=== PATIENT | male | born 1945 | race Caucasian/White ===

== ENCOUNTER 2019-01-24 11:06 | Emergency (ER) | payer OTHER ==
[2019-01-24 12:11] VITALS: BP 110/59
--- NOTE | 2019-01-24 12:13 | EDM.PDOC ---
ED HPI GENERAL MEDICAL PROBLEM - General Chief Complaint: Upper Extremity Injury/Pain Stated Complaint: RT SHOULDER PAIN Time Seen by Provider: 01/24/19 11:13 Source of Information: Reports: Patient History Limitations: Reports: No Limitations - History of Present Illness INITIAL COMMENTS - FREE TEXT/NARRATIVE: History of present illness: []Patient has had a shoulder replacement of the right shoulder on December 13. His shoulder was found to be dislocated on January 17 on a follow-up appointment patient was unaware of this. He went to the [facility] today for another follow-up appointment x -rays were repeated and the shoulder is once again dislocated. He does not complain of any pain, numbness or tingling in the extremity Review of systems: As per history of present illness and below otherwise all systems reviewed and negative. Past medical history: As per history of present illness and as reviewed below otherwise noncontributory. Surgical history: As per history of present illness and as reviewed below otherwise noncontributory. Social history: No reported history of drug or alcohol abuse. Family history: As per history of present illness and as reviewed below otherwise noncontributory. Physical exam: General: Well developed, well nourished in NAD HEENT: Atraumatic, normocephalic, pupils reactive, negative for conjunctival pallor or scleral icterus, mucous membranes moist, throat clear, neck supple, nontender, trachea midline. Lungs: Clear to auscultation, breath sounds equal bilaterally, chest nontender. Heart: S1S2, regular, negative for clicks, rubs, or JVD. Abdomen: NABS, Soft, nondistended, nontender. Negative for masses or hepatosplenomegaly. Negative for costovertebral tenderness. Pelvis: Stable nontender. Genitourinary: Deferred. Rectal: Deferred. Extremities: Right shoulder deformity, nontender, distal extremity shows no deficits pulses are palpable sensations intact negative for cords or calf pain. Neurovascular unremarkable. Neuro: Awake, alert, oriented. Cranial nerves II through XII unremarkable. Cerebellum unremarkable. Motor and sensory unremarkable throughout. Exam nonfocal. Skin:warm and dry Diagnostics: X-ray shows right shoulder prosthetic with dislocation Therapeutics: none ED Course: Dr. Koo was called however he is out for 2 weeks I spoke with Dr. Joshua Braun he recommended patient putting in an arm sling and having him call the clinic for follow-up appointment for revision right either Dr. Hutchison or Dr. Bolaños Impression: recurrent right shoulder dislocation Prescriptions: none Plan: Follow-up with [facility]. Definitive disposition and diagnosis as appropriate pending reevaluation and review of above. - Related Data Allergies Allergy/AdvReac Type Severity Reaction Status Date / Time No Known Allergies Allergy Verified 09/20/14 16:28 Home Meds: Home Meds Ascorbic Acid [C-1000] 1 tab PO DAILY 09/20/14 [History] Aspirin 1 tab PO DAILY 09/20/14 [History] Cholecalciferol (Vitamin D3) [Vitamin D3] 1 tab PO DAILY 09/20/14 [History] Folic Acid 1 tab PO DAILY 09/20/14 [History] Lisinopril 0.5 tab PO BRK 09/20/14 [History] Lovastatin 40 mg PO BEDTIME 09/20/14 [History] Metoprolol Succinate 200 mg PO BRK 09/20/14 [History] Multivitamin [Multi-Vitamin Daily] 1 tab PO DAILY 09/20/14 [History] [place]-3 Fatty Acids [[place]-3] 1 tab PO DAILY 09/20/14 [History] Potassium 1 tab PO DAILY 09/20/14 [History] Psyllium Husk [Metamucil] 1 tab PO ASDIRECTED PRN 09/20/14 [History] Ubidecarenone [Co Q-10] 1 tab PO DAILY 09/20/14 [History] metFORMIN HCl [Metformin HCl] 1,000 mg PO BIDM 09/20/14 [History] Review of Systems - Review of Systems Review Of Systems: ROS reveals no pertinent complaints other than HPI. ED EXAM, GENERAL - Physical Exam Exam: See Below Departure - Departure Time of Disposition: 12:11 Disposition: Home, Self-Care 01 Condition: Good Clinical Impression: Recurrent dislocation, right shoulder - Discharge Information *PRESCRIPTION DRUG MONITORING PROGRAM REVIEWED*: No *COPY OF PRESCRIPTION DRUG MONITORING REPORT IN PATIENT FORTUNATO: No Referrals: PCP,None [Primary Care Provider] - Additional Instructions: The following information is given to patients seen in the emergency department who are being discharged to home. This information is to outline your options for follow-up care. We provide all patients seen in our emergency department with a follow-up referral. The need for follow-up, as well as the timing and circumstances, are variable depending upon the specifics of your emergency department visit. If you don't have a primary care physician on staff, we will provide you with a referral. We always advise you to contact your personal physician following an emergency department visit to inform them of the circumstance of the visit and for follow-up with them and/or the need for any referrals to a consulting specialist. The emergency department will also refer you to a specialist when appropriate. This referral assures that you have the opportunity for follow-up care with a specialist. All of these measure are taken in an effort to provide you with optimal care, which includes your follow-up. Under all circumstances we always encourage you to contact your private physician who remains a resource for coordinating your care. When calling for follow-up care, please make the office aware that this follow-up is from your recent emergency room visit. If for any reason you are refused follow-up, please contact the [facility] Emergency Department at and asked to speak to the emergency department charge nurse. Call [facility] in [facility] for follow-up appointment
== END 2019-01-24 12:23 | disposition home or self-care (01) ==
LOC: MW.ED 11:06
DX: M24.411 Recurrent dislocation, right shoulder (principal); Z79.82 Long term (current) use of aspirin; Z79.899 Other long term (current) drug therapy
CPT/HCPCS: 99283

== ENCOUNTER 2019-03-08 15:39 | Emergency (ER) | payer OTHER ==
[2019-03-08 17:17] LABS: CHLORIDE,CL 101 mmol/L (98-107); SODIUM,NA 134 mmol/L (136-148)
[2019-03-08] MEDS ORDERED: Iopamidol 755 MG/ML 200 ML Multipack Bottle IVPUSH ONE (18:01)
--- NOTE | 2019-03-08 18:26 | CR ---
INDICATION: Fatigue. Elevated liver tests. TECHNIQUE: Chest 1 view COMPARISON: None FINDINGS: Cardiovascular and mediastinum: Heart size and vasculature are normal in caliber and appearance. Lungs and pleural spaces: Lungs are clear. No sign of infiltrate or mass. No sign of pleural effusion. No pneumothorax. Bones and soft tissues: No significant findings. IMPRESSION: No acute or significant findings. Dictated by Praveen Cazares MD @ Mar 08 2019 6:24PM Signed by Dr. Praveen Cazares @ Mar 08 2019 6:25PM
[2019-03-08] MEDS ORDERED: Sodium Chloride 0.9% 1,000 ML IV ONE (18:33)
--- NOTE | 2019-03-08 18:41 | CT ---
INDICATION: Jaundice with elevated liver function tests and peterson stool for the past few days. COMPARISON: None available TECHNIQUE: CT examination of the abdomen and pelvis was performed with the uneventful intravenous administration of 90 cc of Isovue 370 while 3 mm thick axial sections were obtained from the lung bases through the pubic symphysis. Oral contrast was not administered. Please note that all CT scans at this facility use dose modulation, iterative reconstruction, and/or weight-based dosing when appropriate to reduce radiation dose to as low as reasonably achievable. FINDINGS: In the abdomen, the liver has multiple ill-defined low-density masses scattered throughout it operations support representative of metastatic disease. The largest is in the subcapsular posterior-lateral aspect of the posterior segment of the right lobe towards the dome, segment 7, measuring 1.9 centimeters in diameter. The liver is not enlarged by these masses. There is mild intrahepatic biliary ductal dilatation with prominent dilatation of the common bile duct measuring 14 millimeters in caliber, extending to a heterogeneous mass in the inferior pancreatic head measuring 6.4 x 4.2 x 4.6 centimeters. There is slightly decreased density centrally, consistent with central necrosis. The findings are almost certainly of pancreatic carcinoma. The rest of the pancreatic head, body and tail are normal in appearance. The spleen and adrenals are normal in appearance. There are small cysts seen scattered throughout both kidneys, the largest in the upper pole of the right kidney measuring 2.5 centimeters in diameter. The kidneys are otherwise normal in appearance. The gallbladder is moderately distended but otherwise normal in appearance. The moderately calcified abdominal aorta is normal in caliber with no sign of dilatation. There is no sign of retroperitoneal mass or adenopathy. There is no sign of jonas hepatis or peripancreatic adenopathy. The stomach, loops of small bowel, and colon in the abdomen are normal in appearance. In the pelvis, the appendix is nonvisualized, but there is no sign of an inflammatory process in the area of the appendix. The loops of small bowel and colon in the pelvis are normal in appearance. The prostate is moderately enlarged, measuring 5.8 centimeters in diameter. Normal in appearance. The urinary bladder is normal in appearance. There is no sign of pelvic or inguinal mass or adenopathy. There is mild patchy dependent atelectasis in the posterior lung bases. The osseous structures are normal in appearance for the patient`s age. IMPRESSION: CT of the abdomen shows a large mass in the inferior pancreatic head measuring 6.4 x 4.2 x 4.6 centimeters. This results in obstruction of the common bile duct which is prominently dilated, measuring up to 14 millimeters in caliber. There is also mild intrahepatic biliary ductal dilatation. This is almost certainly a pancreatic carcinoma. Multiple ill-defined low-density masses scattered throughout the liver operations support representative of metastatic disease. CT of the pelvis shows moderate enlargement of the prostate. Please note that all CT scans at this facility use dose modulation, iterative reconstruction, and/or weight-based dosing when appropriate to reduce radiation dose to as low as reasonably achievable. Dictated by Haroldo William MD @ Mar 08 2019 6:27PM Signed by Dr. Haroldo William @ Mar 08 2019 6:38PM
--- NOTE | 2019-03-08 19:52 | EDM.PDOC ---
ED HPI GENERAL MEDICAL PROBLEM - General Chief Complaint: Abdominal Pain Stated Complaint: [facility] Time Seen by Provider: 03/08/19 15:48 Source of Information: Reports: Patient History Limitations: Reports: No Limitations - History of Present Illness INITIAL COMMENTS - FREE TEXT/NARRATIVE: HISTORY AND PHYSICAL: History of present illness: Patient is a 74-year-old male presents to the ED with today for concern of yellowing of the skin over the past 2 days and increase in tiredness. Patient states he was seen at the [place] who did labwork and an ultrasound and sent him to the ED due to the concerns of yellow skin. Patient states he does have a history of acute coronary syndrome that occurred over 10 years ago s/p stent placement. Other than the yellowing of the skin as well as the [facility] concern, patient denies any other symptoms or concerns at this time. Patient denies any other health history. Patient denies fever, chills, chest pain, shortness of breath, or cough. Denies headache, neck stiff ness, change in vision, syncope, or near syncope. Denies nausea, vomiting, abdominal pain, diarrhea, constipation, or dysuria. Has not noted any blood in urine or stool. Patient has been eating and drinking appropriately. Review of systems: As per history of present illness and below otherwise all systems reviewed and negative. Past medical history: As per history of present illness and as reviewed below otherwise noncontributory. Surgical history: As per history of present illness and as reviewed below otherwise noncontributory. Social history: See social history for further information Family history: As per history of present illness and as reviewed below otherwise noncontributory. Physical exam: General: Patient is alert, oriented, and in no acute distress. Patient sitting comfortably on exam table. HEENT: Atraumatic, normocephalic, pupils equal and reactive bilaterally, negative for conjunctival pallor, but significant scleral icterus, mucous membranes moist, TMs normal bilaterally, throat clear, neck supple, nontender, trachea midline. No drooling or trismus noted. No meningeal signs. No hot potato voice noted. Lungs: Clear to auscultation, breath sounds equal bilaterally, chest nontender. Heart: S1S2, regular rate and rhythm without overt murmur Abdomen: Soft, nondistended, nontender. Negative for masses or hepatosplenomegaly. Negative for costovertebral tenderness. Pelvis: Stable nontender. Genitourinary: Deferred. Rectal: Deferred. Skin: Intact, warm, dry. Visually global jaundice. Extremities: Atraumatic, negative for cords or calf pain. Neurovascular unremarkable. Neuro: Awake, alert, oriented. Cranial nerves II through XII unremarkable. Cerebellum unremarkable. Motor and sensory unremarkable throughout. Exam nonfocal. Notes: Dr. Miranda verbally involved in patient care. [facility] was consult on patient and per their GI specialist, patient requires an ERCP which [facility] is not able to perform. [facility] was consulted on patient and accepting of patient transfer via EMS to Dr. Santos / Dr. Soto. [facility] understanding and is agreeable to plan of care. Denies any further questions or concerns at this time. 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 Transfer to [facility] to Dr. Santos / Dr. Soto via EMS. Definitive disposition and diagnosis as appropriate pending reevaluation and review of above. - Related Data Allergies Allergy/AdvReac Type Severity Reaction Status Date / Time No Known Allergies Allergy Verified 03/08/19 15:47 Home Meds: Home Meds Ascorbic Acid [C-1000] 1 tab PO DAILY 09/20/14 [History] Aspirin 1 tab PO DAILY 09/20/14 [History] Cholecalciferol (Vitamin D3) [Vitamin D3] 1 tab PO DAILY 09/20/14 [History] Folic Acid 1 tab PO DAILY 09/20/14 [History] Lisinopril 0.5 tab PO DAILY 09/20/14 [History] Metoprolol Succinate 200 mg PO DAILY 09/20/14 [History] Multivitamin [Multi-Vitamin Daily] 1 tab PO DAILY 09/20/14 [History] [place]-3 Fatty Acids [[place]-3] 1 tab PO DAILY 09/20/14 [History] Potassium 1 tab PO DAILY 09/20/14 [History] Psyllium Husk [Metamucil] 1 tab PO BID PRN 09/20/14 [History] Hydrocodone/Acetaminophen [Hydrocodon-Acetaminophn 10-325] 1 tab PO Q4H PRN [History] Magnesium Oxide [Magnesium] 500 mg PO DAILY 01/24/19 [History] Nitroglycerin [Nitrostat] 0.4 mg SL ASDIRECTED PRN 01/24/19 [History] Rosuvastatin Calcium 40 mg PO DAILY 01/24/19 [History] Ubidecarenone [Coenzyme Q10] 10 mg PO DAILY 01/24/19 [History] glipiZIDE [Glucotrol] 5 mg PO ACBREAKFASTANDBED 01/24/19 [History] oxyCODONE HCl [Oxycodone HCl] 10 mg PO Q3H PRN 01/24/19 [History] Past Medical History HEENT History: Reports: Impaired Vision Cardiovascular History: Reports: [facility], [facility] - Infectious Disease History Infectious Disease History: Reports: Chicken Pox, Measles, Mumps - Past Surgical History Cardiovascular Surgical History: Reports: None Musculoskeletal Surgical History: Reports: Other (See Below) Other Musculoskeletal Surgeries/Procedures:: right total shoulder on 12/13/2018 Social & Family History - Family History Family Medical History: Noncontributory - Tobacco Use Smoking Status *Q: Never Smoker Second Hand Smoke Exposure: No - Caffeine Use Caffeine Use: Reports: Coffee - Recreational Drug Use Recreational Drug Use: No ED ROS GENERAL - Review of Systems Review Of Systems: ROS reveals no pertinent complaints other than HPI. ED EXAM, GI/ABD - Physical Exam Exam: See Below (see dictation) Course - Vital Signs Last Recorded V/S: Last Vital Signs Temp 36.9 C 03/08/19 15:48 Pulse 75 03/08/19 18:43 Resp 16 03/08/19 18:43 BP 134/71 03/08/19 18:43 Pulse Ox 95 03/08/19 18:43 - Orders/Labs/Meds Orders: Active Orders 24 hr Category Date Time Status EKG Documentation Completion [RC] STAT Care 03/08/19 16:13 Active INR,PT,PROTHROMBIN TIME [COAG] Stat Lab 03/08/19 16:34 Received Labs: Laboratory Tests 03/08/19 03/08/19 03/08/19 Range/Units 16:34 16:34 16:34 WBC 12.05 H (4.0-11.0) K/uL RBC 4.22 L (4.50-5.90) M/uL Hgb 12.4 L (13.0-17.0) g/dL Hct 37.8 L (38.0-50.0) % MCV 89.6 (80.0-98.0) fL MCH 29.4 (27.0-32.0) pg MCHC 32.8 (31.0-37.0) g/dL RDW Std Deviation 48.4 (28.0-62.0) fl RDW Coeff of [place] 15 (11.0-15.0) % Plt Count 303 (150-400) K/uL MPV 10.40 (7.40-12.00) fL Neut % (Auto) 75.8 (48.0-80.0) % Lymph % (Auto) 7.4 L (16.0-40.0) % [place] % (Auto) 13.9 (0.0-15.0) % Eos % (Auto) 2.7 (0.0-7.0) % Baso % (Auto) 0.2 (0.0-1.5) % Neut # (Auto) 9.1 H (1.4-5.7) K/uL Lymph # (Auto) 0.9 (0.6-2.4) K/uL [place] # (Auto) 1.7 H (0.0-0.8) K/uL Eos # (Auto) 0.3 (0.0-0.7) K/uL Baso # (Auto) 0.0 (0.0-0.1) K/uL Nucleated RBC % 0.0 /100WBC Nucleated RBCs # 0 K/uL Sodium 134 L (136-148) mmol/L Potassium 4.1 (3.5-5.1) mmol/L Chloride 101 (98-107) mmol/L Carbon Dioxide 23.1 (21.0-32.0) mmol/L BUN 25 H (7.0-18.0) mg/dL Creatinine 1.3 (0.8-1.3) mg/dL Est Cr Clr Drug Dosing 53.06 mL/min Estimated GFR (MDRD) 53.7 ml/min Glucose 88 (74-106) mg/dL Calcium 9.2 (8.5-10.1) mg/dL Total Bilirubin 8.3 H (0.2-1.0) mg/dL AST 170 H (15-37) IU/L ALT 346 H (14-63) IU/L Alkaline Phosphatase 628 H (46-116) U/L Ammonia 13 L (19-54) ug/dL Troponin I < 0.050 (0.000-0.056) ng/mL Total Protein 7.5 (6.4-8.2) g/dL Albumin 3.2 L (3.4-5.0) g/dL Globulin 4.3 H (2.6-4.0) g/dL Albumin/Globulin Ratio 0.7 L (0.9-1.6) Amylase 419 H (25-115) U/L Lipase 4620 H (73-393) U/L Urine Color Urine Appearance Urine pH (5.0-8.0) Ur Specific [place] (1.001-1.035) Urine Protein (NEGATIVE) mg/dL Urine Glucose (UA) (NEGATIVE) mg/dL Urine Ketones (NEGATIVE) mg/dL Urine Occult Blood (NEGATIVE) Urine Nitrite (NEGATIVE) Urine Bilirubin (NEGATIVE) Urine Ictotest Urine Urobilinogen (<2.0) EU/dL Ur Leukocyte Esterase (NEGATIVE) Urine RBC (0-2/HPF) Urine WBC (0-5/HPF) Ur Epithelial Cells (NONE-FEW) Urine Bacteria (NEGATIVE) Hyaline Casts (0-2/LPF) 03/08/19 Range/Units 18:27 WBC (4.0-11.0) K/uL RBC (4.50-5.90) M/uL Hgb (13.0-17.0) g/dL Hct (38.0-50.0) % MCV (80.0-98.0) fL MCH (27.0-32.0) pg MCHC (31.0-37.0) g/dL RDW Std Deviation (28.0-62.0) fl RDW Coeff of [place] (11.0-15.0) % Plt Count (150-400) K/uL MPV (7.40-12.00) fL Neut % (Auto) (48.0-80.0) % Lymph % (Auto) (16.0-40.0) % [place] % (Auto) (0.0-15.0) % Eos % (Auto) (0.0-7.0) % Baso % (Auto) (0.0-1.5) % Neut # (Auto) (1.4-5.7) K/uL Lymph # (Auto) (0.6-2.4) K/uL [place] # (Auto) (0.0-0.8) K/uL Eos # (Auto) (0.0-0.7) K/uL Baso # (Auto) (0.0-0.1) K/uL Nucleated RBC % /100WBC Nucleated RBCs # K/uL Sodium (136-148) mmol/L Potassium (3.5-5.1) mmol/L Chloride (98-107) mmol/L Carbon Dioxide (21.0-32.0) mmol/L BUN (7.0-18.0) mg/dL Creatinine (0.8-1.3) mg/dL Est Cr Clr Drug Dosing mL/min Estimated GFR (MDRD) ml/min Glucose (74-106) mg/dL Calcium (8.5-10.1) mg/dL Total Bilirubin (0.2-1.0) mg/dL AST (15-37) IU/L ALT (14-63) IU/L Alkaline Phosphatase (46-116) U/L Ammonia (19-54) ug/dL Troponin I (0.000-0.056) ng/mL Total Protein (6.4-8.2) g/dL Albumin (3.4-5.0) g/dL Globulin (2.6-4.0) g/dL Albumin/Globulin Ratio (0.9-1.6) Amylase (25-115) U/L Lipase (73-393) U/L Urine Color DARK YELLOW Urine Appearance CLEAR Urine pH 5.5 (5.0-8.0) Ur Specific [place] 1.020 (1.001-1.035) Urine Protein TRACE H (NEGATIVE) mg/dL Urine Glucose (UA) NEGATIVE (NEGATIVE) mg/dL Urine Ketones NEGATIVE (NEGATIVE) mg/dL Urine Occult Blood NEGATIVE (NEGATIVE) Urine Nitrite NEGATIVE (NEGATIVE) Urine Bilirubin MODERATE H (NEGATIVE) Urine Ictotest POSITIVE Urine Urobilinogen 0.2 (<2.0) EU/dL Ur Leukocyte Esterase NEGATIVE (NEGATIVE) Urine RBC 0-2 (0-2/HPF) Urine WBC 1-2 (0-5/HPF) Ur Epithelial Cells OCCASIONAL (NONE-FEW) Urine Bacteria RARE (NEGATIVE) Hyaline Casts 0-2 (0-2/LPF) Meds: Medications Discontinued Medications Generic Name Dose Route Start Last Admin Trade Name Jay Jay PRN Reason Stop Dose Admin Sodium Chloride 1,000 mls @ 999 mls/hr 03/08/19 18:33 03/08/19 19:34 Normal Saline IV 03/08/19 19:33 75 mls/hr .Bolus ONE Infusion Iopamidol 90 ml 03/08/19 18:01 03/08/19 18:02 Isovue Multipack-370 (76%) IVPUSH 03/08/19 18:02 90 ml ONETIME ONE Administration Departure - Departure Time of Disposition: 19:53 Disposition: DC/Tfer to Acute Hospital 02 Clinical Impression: Pancreatic mass, Common bile duct obstruction - Discharge Information - My Orders Last 24 Hours: My Active Orders 03/08/19 16:13 EKG Documentation Completion [RC] STAT 03/08/19 16:34 INR,PT,PROTHROMBIN TIME [COAG] Stat - Assessment/Plan Last 24 Hours: My Active Orders 03/08/19 16:13 EKG Documentation Completion [RC] STAT 03/08/19 16:34 INR,PT,PROTHROMBIN TIME [COAG] Stat
[2019-03-08 20:19] VITALS: BP 117/64
== END 2019-03-08 20:20 ==
LOC: MW.ED 15:39
DX: K86.9 Disease of pancreas, unspecified (principal); K83.1 Obstruction of bile duct; I10 Essential (primary) hypertension; I25.2 Old myocardial infarction; Z79.899 Other long term (current) drug therapy; Z79.82 Long term (current) use of aspirin; Z95.5 Presence of coronary angioplasty implant and graft
CPT/HCPCS: 36415; 71045; 74177; 80053; 81001; 82140; 82150; 83690; 84484; 85025; 85610; 96360; 96361; 99285; J7040; Q9967; 93005

== ENCOUNTER 2019-03-15 11:01 | Emergency (ER) | payer OTHER ==
[2019-03-15] MEDS ORDERED: Sodium Chloride 0.9% 2.5 ML Syringe FLUSH PRN (11:26)
[2019-03-15] MEDS ORDERED: Acetaminophen 500 MG Tab PO ONE (11:26)
[2019-03-15] MEDS ORDERED: Sodium Chloride 0.9% 10 ML Syringe FLUSH PRN (11:26)
[2019-03-15] MEDS ORDERED: Sodium Chloride 0.9% 1,000 ML IV ONE ×2 (11:27→14:03)
--- NOTE | 2019-03-15 11:58 | EDM.PDOC ---
ED HPI GENERAL MEDICAL PROBLEM - General Chief Complaint: General Stated Complaint: NAUSIA, TIRED FEELING Time Seen by Provider: 03/15/19 11:09 Source of Information: Reports: Patient History Limitations: Reports: No Limitations - History of Present Illness INITIAL COMMENTS - FREE TEXT/NARRATIVE: HISTORY AND PHYSICAL: History of present illness: Patient is a 74-year-old male presents to the ED today with increase in tiredness and energy. Patient was recently transferred from our ER to [facility] due to an obstructive pancreatic mass of the gallbladder. Patient states he had had a stent placed in his gallbladder on Tuesday (5 days ago) and was released from the hospital as his bilirubin was improving. Patient states he has felt fine at home and Tylenol this morning when he woke up and he felt like energy had been wiped from him. Patient states he has an appointment on Tuesday to find out the results of his biopsy as he has not been primarily diagnosed with cancer. After the biopsy comes back he has an appointment with oncology next week. Patient has not started any treatments for cancer but has been told is mass looks highly suspicious for it. Patient denies any other symptoms other than the fatigue. Patient states during the stent they had a few complications and had to place a stent abdominally rather than through an EGD. Patient denies fever, chills, chest pain, shortness of breath, or cough. Denies headache, neck stiff ness, change in vision, syncope, or near syncope. Denies nausea, vomiting, abdominal pain, diarrhea, constipation, or dysuria. Has not noted any blood in urine or stool. Patient has been eating and drinking appropriately. Review of systems: As per history of present illness and below otherwise all systems reviewed and negative. Past medical history: As per history of present illness and as reviewed below otherwise noncontributory. Surgical history: As per history of present illness and as reviewed below otherwise noncontributory. Social history: See social history for further information Family history: As per history of present illness and as reviewed below otherwise noncontributory. Physical exam: General: Patient is alert, oriented, and in no acute distress. Patient laying comfortably on exam table and tired appearing. HEENT: Atraumatic, normocephalic, pupils equal and reactive bilaterally, negative for conjunctival pallor, positive scleral icterus, mucous membranes moist, TMs normal bilaterally, throat clear, neck supple, nontender, trachea midline. No drooling or trismus noted. No meningeal signs. No hot potato voice noted. Lungs: Clear to auscultation, breath sounds equal bilaterally, chest nontender. Heart: S1S2, regular rate and rhythm without overt murmur Abdomen: Obese, soft, nondistended, nontender. No erythema or pain of new surgical area. Negative for masses or hepatosplenomegaly. Negative for costovertebral tenderness. Pelvis: Stable nontender. Genitourinary: Deferred. Rectal: Deferred. Skin: Intact, warm, dry. No lesions or rashes noted. Generalized jaundice. Extremities: Atraumatic, negative for cords or calf pain. Neurovascular unremarkable. Neuro: Awake, alert, oriented. Cranial nerves II through XII unremarkable. Cerebellum unremarkable. Motor and sensory unremarkable throughout. Exam nonfocal. Notes: Dr. Reveles verbally involved in patient care. Patient is febrile upon arrival to ED. Tylenol was given with resolution of fever. Dr. Caldera was consult on patient but is not comfortable admitting patient for hospital due to the recent stent placement for pancreatic mass and not having a GI specialist here. [facility] consult on patient and will transfer to Dr. Anderson via EMS. Voices understanding and is agreeable to plan of care. Denies any further questions or concerns at this time. Diagnostics: CBC, CMP, lactate, blood cultures 2, UA, urine culture, abdominal pelvic CT, lipase, INR, CXR Therapeutics: Tylenol, normal saline, Zosyn Impression: Post op fever, unspecified Pancreatic mass Transaminitis Plan: 1. Transfer to [facility] to Dr. Anderson / Dr. Lopez. Definitive disposition and diagnosis as appropriate pending reevaluation and review of above. - Related Data Allergies Allergy/AdvReac Type Severity Reaction Status Date / Time No Known Allergies Allergy Verified 03/08/19 15:47 Home Meds: Home Meds Ascorbic Acid [C-1000] 1 tab PO DAILY 09/20/14 [History] Aspirin 1 tab PO DAILY 09/20/14 [History] Cholecalciferol (Vitamin D3) [Vitamin D3] 1 tab PO DAILY 09/20/14 [History] Folic Acid 0.5 tab PO DAILY 09/20/14 [History] Lisinopril 1 tab PO DAILY 09/20/14 [History] Metoprolol Succinate 200 mg PO DAILY 09/20/14 [History] Multivitamin [Multi-Vitamin Daily] 1 tab PO DAILY 09/20/14 [History] [place]-3 Fatty Acids [[place]wood-3] 1 tab PO DAILY 09/20/14 [History] Psyllium Husk [Metamucil] 1 tab PO BID PRN 09/20/14 [History] Magnesium Oxide [Magnesium] 500 mg PO DAILY 01/24/19 [History] Nitroglycerin [Nitrostat] 0.4 mg SL ASDIRECTED PRN 01/24/19 [History] Ubidecarenone [Coenzyme Q10] 10 mg PO DAILY 01/24/19 [History] glipiZIDE [Glucotrol] 5 mg PO ACBREAKFASTANDBED 01/24/19 [History] FA/Lycopene/Lut/MV,Ca,Iron,Min [Centrum] 1 tab PO DAILY 03/15/19 [History] Potassium Chloride [Klor-Con 10] 1 tab PO DAILY 03/15/19 [History] Past Medical History HEENT History: Reports: Impaired Vision Cardiovascular History: Reports: Hypertension, AR, Stents - Infectious Disease History Infectious Disease History: Reports: Chicken Pox, Measles, Mumps - Past Surgical History Cardiovascular Surgical History: Reports: None GI Surgical History: Reports: ERCP Other GI Surgeries/Procedures: bile stent placeds february 2019 Musculoskeletal Surgical History: Reports: Other (See Below) Other Musculoskeletal Surgeries/Procedures:: right total shoulder on 12/13/2018 Social & Family History - Family History Family Medical History: Noncontributory - Tobacco Use Smoking Status *Q: Never Smoker - Caffeine Use Caffeine Use: Reports: Coffee - Recreational Drug Use Recreational Drug Use: No ED ROS GENERAL - Review of Systems Review Of Systems: ROS reveals no pertinent complaints other than HPI. ED EXAM, GENERAL - Physical Exam Exam: See Below (See dictation) Course - Vital Signs Last Recorded V/S: Last Vital Signs Temp 38.1 C 03/15/19 12:59 Pulse 67 03/15/19 12:59 Resp 18 03/15/19 12:59 BP 115/60 03/15/19 12:59 Pulse Ox 98 03/15/19 12:59 - Orders/Labs/Meds Orders: Active Orders 24 hr Category Date Time Status Oxygen Therapy, ED [RC] ASDIRECTED Care 03/15/19 11:25 Active Pulse Oximetry [RC] ASDIRECTED Care 03/15/19 11:25 Active Chest 1V Frontal [CR] Stat Exams 03/15/19 14:00 Ordered CULTURE BLOOD [BC] Stat Lab 03/15/19 11:34 Received CULTURE BLOOD [BC] Stat Lab 03/15/19 11:49 Received CULTURE URINE [RM] Stat Lab 03/15/19 11:25 Ordered URINALYSIS W/MICROSCOPIC [UA W/MICROSCOPIC] [URIN] Stat Lab 03/15/19 11:26 Ordered Sodium Chloride 0.9% [Normal Saline] 1,000 ml Med 03/15/19 14:03 Active IV STAT Sodium Chloride 0.9% [Saline Flush] Med 03/15/19 11:26 Active 10 ml FLUSH ASDIRECTED PRN Sodium Chloride 0.9% [Saline Flush] Med 03/15/19 11:26 Active 2.5 ml FLUSH ASDIRECTED PRN Blood Culture x2 Reflex Set [OM.PC] Stat Oth 03/15/19 11:25 Ordered Saline Lock Insert [OM.PC] Stat Oth 03/15/19 11:25 Ordered Medication Orders Sodium Chloride (Normal Saline) 1,000 mls @ 125 mls/hr IV STAT ONE Stop: 03/15/19 22:02 Last Admin: 03/15/19 14:04 Dose: 125 mls/hr Sodium Chloride (Saline Flush) 10 ml FLUSH ASDIRECTED PRN PRN Reason: Keep Vein Open Last Admin: 03/15/19 11:36 Dose: 10 ml Sodium Chloride (Saline Flush) 2.5 ml FLUSH ASDIRECTED PRN PRN Reason: Keep Vein Open Last Admin: 03/15/19 11:36 Dose: 2.5 ml Labs: Laboratory Tests 03/15/19 03/15/19 03/15/19 Range/Units 11:34 11:34 11:34 WBC 12.48 H (4.0-11.0) K/uL RBC 3.86 L (4.50-5.90) M/uL Hgb 11.2 L (13.0-17.0) g/dL Hct 34.9 L (38.0-50.0) % MCV 90.4 (80.0-98.0) fL MCH 29.0 (27.0-32.0) pg MCHC 32.1 (31.0-37.0) g/dL RDW Std Deviation 50.1 (28.0-62.0) fl RDW Coeff of Valencia 15 (11.0-15.0) % Plt Count 310 (150-400) K/uL MPV 9.70 (7.40-12.00) fL Neut % (Auto) 89.2 H (48.0-80.0) % Lymph % (Auto) 4.2 L (16.0-40.0) % [place]oup % (Auto) 6.4 (0.0-15.0) % Eos % (Auto) 0.1 (0.0-7.0) % Baso % (Auto) 0.1 (0.0-1.5) % Neut # (Auto) 11.1 H (1.4-5.7) K/uL Lymph # (Auto) 0.5 L (0.6-2.4) K/uL Troup # (Auto) 0.8 (0.0-0.8) K/uL Eos # (Auto) 0.0 (0.0-0.7) K/uL Baso # (Auto) 0.0 (0.0-0.1) K/uL Nucleated RBC % 0.0 /100WBC Nucleated RBCs # 0 K/uL INR Lactate 2.5 H (0.20-2.00) mmol/L Sodium 133 L (136-148) mmol/L Potassium 3.9 (3.5-5.1) mmol/L Chloride 98 (98-107) mmol/L Carbon Dioxide 23.6 (21.0-32.0) mmol/L BUN 20 H (7.0-18.0) mg/dL Creatinine 1.5 H (0.8-1.3) mg/dL Est Cr Clr Drug Dosing 45.99 mL/min Estimated GFR (MDRD) 45.5 ml/min Glucose 231 H (74-106) mg/dL Calcium 8.8 (8.5-10.1) mg/dL Total Bilirubin 3.1 H (0.2-1.0) mg/dL AST 258 H (15-37) IU/L ALT 283 H (14-63) IU/L Alkaline Phosphatase 548 H (46-116) U/L Total Protein 6.8 (6.4-8.2) g/dL Albumin 2.7 L (3.4-5.0) g/dL Globulin 4.1 H (2.6-4.0) g/dL Albumin/Globulin Ratio 0.7 L (0.9-1.6) Lipase 2232 H (73-393) U/L 03/15/19 Range/Units 11:34 WBC (4.0-11.0) K/uL RBC (4.50-5.90) M/uL Hgb (13.0-17.0) g/dL Hct (38.0-50.0) % MCV (80.0-98.0) fL MCH (27.0-32.0) pg MCHC (31.0-37.0) g/dL RDW Std Deviation (28.0-62.0) fl RDW Coeff of Valencia (11.0-15.0) % Plt Count (150-400) K/uL MPV (7.40-12.00) fL Neut % (Auto) (48.0-80.0) % Lymph % (Auto) (16.0-40.0) % Troup % (Auto) (0.0-15.0) % Eos % (Auto) (0.0-7.0) % Baso % (Auto) (0.0-1.5) % Neut # (Auto) (1.4-5.7) K/uL Lymph # (Auto) (0.6-2.4) K/uL Troup # (Auto) (0.0-0.8) K/uL Eos # (Auto) (0.0-0.7) K/uL Baso # (Auto) (0.0-0.1) K/uL Nucleated RBC % /100WBC Nucleated RBCs # K/uL INR 1.10 Lactate (0.20-2.00) mmol/L Sodium (136-148) mmol/L Potassium (3.5-5.1) mmol/L Chloride (98-107) mmol/L Carbon Dioxide (21.0-32.0) mmol/L BUN (7.0-18.0) mg/dL Creatinine (0.8-1.3) mg/dL Est Cr Clr Drug Dosing mL/min Estimated GFR (MDRD) ml/min Glucose (74-106) mg/dL Calcium (8.5-10.1) mg/dL Total Bilirubin (0.2-1.0) mg/dL AST (15-37) IU/L ALT (14-63) IU/L Alkaline Phosphatase (46-116) U/L Total Protein (6.4-8.2) g/dL Albumin (3.4-5.0) g/dL Globulin (2.6-4.0) g/dL Albumin/Globulin Ratio (0.9-1.6) Lipase (73-393) U/L Meds: Medications Generic Name Dose Route Start Last Admin Trade Name Freq PRN Reason Stop Dose Admin Sodium Chloride 1,000 mls @ 125 mls/hr 03/15/19 14:03 03/15/19 14:04 Normal Saline IV 03/15/19 22:02 125 mls/hr STAT ONE Administration Sodium Chloride 10 ml 03/15/19 11:26 03/15/19 11:36 Saline Flush FLUSH 10 ml ASDIRECTED PRN Administration Keep Vein Open Sodium Chloride 2.5 ml 03/15/19 11:26 03/15/19 11:36 Saline Flush FLUSH 2.5 ml ASDIRECTED PRN Administration Keep Vein Open Discontinued Medications Generic Name Dose Route Start Last Admin Trade Name Freq PRN Reason Stop Dose Admin Acetaminophen 1,000 mg 03/15/19 11:26 03/15/19 11:36 Tylenol Extra Strength PO 03/15/19 11:27 1,000 mg ONETIME ONE Administration Sodium Chloride 1,000 mls @ 999 mls/hr 03/15/19 11:27 03/15/19 11:36 Normal Saline IV 03/15/19 12:27 999 mls/hr STAT ONE Administration Piperacillin Sod/Tazobactam 100 mls @ 100 mls/hr 03/15/19 12:03 03/15/19 12: 55 Sod 4.5 gm/ Sodium Chloride IV 03/15/19 13:02 100 mls/hr ONETIME ONE Administration Iopamidol 75 ml 03/15/19 12:25 03/15/19 12:40 Isovue-300 (61%) IVPUSH 03/15/19 12:26 75 ml ONETIME STA Administration Departure - Departure Time of Disposition: 14:41 Disposition: DC/Tfer to [facility] Clinical Impression: Postoperative fever, Pancreatic mass - Discharge Information - My Orders Last 24 Hours: My Active Orders 03/15/19 14:00 Chest 1V Frontal [CR] Stat 03/15/19 14:03 Sodium Chloride 0.9% [Normal Saline] 1,000 ml IV STAT - Assessment/Plan Last 24 Hours: My Active Orders 03/15/19 14:00 Chest 1V Frontal [CR] Stat 03/15/19 14:03 Sodium Chloride 0.9% [Normal Saline] 1,000 ml IV STAT
[2019-03-15] MEDS ORDERED: Piperacillin/Tazobactam 4.5 GM in Sodium Chloride 0.9% 100 ML IV ONE (12:03)
[2019-03-15] MEDS ORDERED: Iopamidol 612 MG/ML 75 ML Bottle IVPUSH STA (12:25)
--- NOTE | 2019-03-15 13:55 | CT ---
INDICATION: Pain following common bile duct stent placement. TECHNIQUE: Volumetric unenhanced CT the abdomen and pelvis with multiplanar reconstruction. COMPARISON: Contrast enhanced CT of the abdomen and pelvis on 03/08/2019. FINDINGS: Bibasilar atelectasis. FINDINGS: The liver and spleen are normal in size. Again noted are multiple metastatic lesions in the liver. Air in the biliary tract likely related to stent placement. Placement of coils in the liver. The common bile duct stent extends from the jonas hepatis to the ampulla of Vater. Contained air and a small amount of fluid in the common hepatic duct proximal to the stent. An abscess is not identified. The gallbladder is present. Air and fluid in the descending duodenum. No bowel perforation. A known necrotic mass in the head of the pancreas is again identified. The pancreatic body and tail are normal. The spleen and adrenal glands are normal. The kidneys are normal size, shape, and position. Both kidneys are functioning. No hydronephrosis. Stable bilateral simple renal cysts. The abdominal aorta is normal in caliber and displays changes of atherosclerosis. No para-aortic or retrocrural lymphadenopathy. Normal bowel gas pattern. No inflammatory changes involving the bowel. The urinary bladder has a smooth contour. The prostate gland is enlarged and stable in size. The fat planes surrounding the bladder, rectum, and prostate are maintained. No free air or free fluid in the abdomen and pelvis. Thoracolumbar spondylosis. Impression : 1. Common bile duct stent well positioned. Air in the biliary tract and small amount of air and fluid in the common hepatic duct proximal to the stent likely related to stated placement. An abscess is not identified. 2. The metastatic lesions in the liver and mass in the head of the pancreas are known findings. 3. Stable simple renal cysts. Please note that all CT scans at this facility use dose modulation, iterative reconstruction, and/or weight-based dosing when appropriate to reduce radiation dose to as low as reasonably achievable. Dictated by Lourdes Grady MD @ Mar 15 2019 1:37PM Signed by Dr. Lourdes Grady @ Mar 15 2019 1:53PM
[2019-03-15 14:30] VITALS: BP 92/48
--- NOTE | 2019-03-15 14:33 | CR ---
INDICATION: Pain. Short of breath. TECHNIQUE: Portable 1 view chest. COMPARISON: Chest 03/08/2019. FINDINGS: Heart and mediastinum are normal in size. Pulmonary vessels are normal. Lungs are clear. No pleural fluid. Reverse right shoulder arthroplasty. No acute bony abnormality. IMPRESSION: Stable chest with no evidence of acute disease. Dictated by Lourdes Grady MD @ Mar 15 2019 2:30PM Signed by Dr. Lourdes Grady @ Mar 15 2019 2:32PM
== END 2019-03-15 14:45 ==
LOC: MW.ED 11:01
DX: R50.82 Postprocedural fever (principal); K86.9 Disease of pancreas, unspecified; R74.0 Nonspecific elevation of levels of transaminase and lactic acid dehydrogenase [LDH]; I10 Essential (primary) hypertension; I25.2 Old myocardial infarction; Z79.82 Long term (current) use of aspirin; Z79.899 Other long term (current) drug therapy
CPT/HCPCS: 36415; 71045; 74177; 80053; 81001; 83605; 83690; 85025; 85610; 87040; 87077; 87086; 87186; 96361; 96365; 99285; A9270; J2543; J7030; J7040; Q9967

== ENCOUNTER 2019-03-24 10:54 | Emergency (ER) | payer OTHER ==
[2019-03-24] MEDS ORDERED: Sodium Chloride 0.9% 10 ML Syringe FLUSH PRN (11:08)
[2019-03-24] MEDS ORDERED: Sodium Chloride 0.9% 1,000 ML IV ONE ×2 (11:08→13:42)
[2019-03-24] MEDS ORDERED: Sodium Chloride 0.9% 2.5 ML Syringe FLUSH PRN (11:08)
--- NOTE | 2019-03-24 11:43 | CR ---
INDICATION: Dyspnea, chest pain. TECHNIQUE: Chest 1 view. COMPARISON: 03/15/2019. FINDINGS: The heart size and central vascular pattern remains stable and within normal range. The lungs remain clear of acute infiltrates. No pleural effusions are seen. A reverse right total shoulder arthroplasty is partially visualized. IMPRESSION: Stable radiographic findings without acute cardiopulmonary disease evident. Dictated by Reuben Bass MD @ Mar 24 2019 11:40AM Signed by Dr. Reuben Bass @ Mar 24 2019 11:41AM
[2019-03-24] MEDS ORDERED: Iopamidol 755 MG/ML 500 ML Multipack Bottle IVPUSH STA (13:00)
--- NOTE | 2019-03-24 13:04 | EDM.PDOC ---
ED HPI GENERAL MEDICAL PROBLEM - General Chief Complaint: Respiratory Problem Stated Complaint: SIDE EFFECTS FROM ANTIBIOTICS Time Seen by Provider: 03/24/19 10:56 Source of Information: Reports: Patient History Limitations: Reports: No Limitations - History of Present Illness INITIAL COMMENTS - FREE TEXT/NARRATIVE: History of present illness: []Patient was recently diagnosed with pancreatic cancer and arrives complaining of shortness of breath with activity for the last 3 days. He denies any shortness of breath while resting or chest or abdominal pain, fevers, chills, vomiting or diarrhea. Review of systems: As per history of present illness and below otherwise all systems reviewed and negative. Past medical history: As per history of present illness and as reviewed below otherwise noncontributory. Surgical history: As per history of present illness and as reviewed below otherwise noncontributory. Social history: No reported history of drug or alcohol abuse. Family history: As per history of present illness and as reviewed below otherwise noncontributory. Physical exam: General: Well developed, well nourished in NAD HEENT: Atraumatic, normocephalic, pupils reactive, negative for conjunctival pallor or scleral icterus, mucous membranes moist, throat clear, neck supple, nontender, trachea midline. Lungs: Clear to auscultation, breath sounds equal bilaterally, chest nontender. Heart: S1S2, regular, negative for clicks, rubs, or JVD. Abdomen: NABS, Soft, nondistended, nontender. Negative for masses or hepatosplenomegaly. Negative for costovertebral tenderness. Pelvis: Stable nontender. Genitourinary: Deferred. Rectal: Deferred. Extremities: Atraumatic, negative for cords or calf pain. Neurovascular unremarkable. Neuro: Awake, alert, oriented. Cranial nerves II through XII unremarkable. Cerebellum unremarkable. Motor and sensory unremarkable throughout. Exam nonfocal. Skin:warm and dry Diagnostics: CBC, chemistry, d-dimer, lipase, coags chest x-ray, CT angiogram-if for PE, shows atelectasis bilaterally Therapeutics: IV hydration ED Course: Stable, lab results of liver function tests improved from previous Impression: Bilateral atelectasis Prescriptions: None Plan: Take meds as directed, follow up with your primary care physician, return to ER if symptoms worsen or change. Use incentive spirometer as directed Definitive disposition and diagnosis as appropriate pending reevaluation and review of above. - Related Data Allergies Allergy/AdvReac Type Severity Reaction Status Date / Time No Known Allergies Allergy Verified 03/24/19 11:06 Home Meds: Home Meds Aspirin 325 mg PO DAILY 09/20/14 [History] Metoprolol Succinate 100 mg PO DAILY 09/20/14 [History] Amoxicillin/Clavulanate K [Augmentin 875-125 MG] 1 tab PO BID 03/24/19 [History] Insulin Aspart [NovoLOG] 3 - 11 units SQ TIDAC 03/24/19 [History] Levofloxacin [Levaquin] 750 mg PO DAILY 03/24/19 [History] Pantoprazole Sodium [Protonix] 40 mg PO DAILY 03/24/19 [History] Past Medical History HEENT History: Reports: Impaired Vision Cardiovascular History: Reports: Hypertension, [place], Stents Endocrine/Metabolic History: Reports: Diabetes, Type II Oncologic (Cancer) History: Reports: Pancreatic - Infectious Disease History Infectious Disease History: Reports: Chicken Pox, Measles, Mumps - Past Surgical History Cardiovascular Surgical History: Reports: None GI Surgical History: Reports: ERCP Other GI Surgeries/Procedures: bile stent placeds february 2019 Musculoskeletal Surgical History: Reports: Other (See Below) Other Musculoskeletal Surgeries/Procedures:: right total shoulder on 12/13/2018 Oncologic Surgical History: Reports: None Social & Family History - Family History Family Medical History: Noncontributory - Tobacco Use Smoking Status *Q: Never Smoker Second Hand Smoke Exposure: No - Caffeine Use Caffeine Use: Reports: Coffee - Recreational Drug Use Recreational Drug Use: No ED ROS GENERAL - Review of Systems Review Of Systems: See Below ED EXAM, GENERAL - Physical Exam Exam: See Below Course - Vital Signs Last Recorded V/S: Last Vital Signs Temp 97.4 F 03/24/19 11:06 Pulse 87 03/24/19 13:20 Resp 19 03/24/19 13:20 BP 152/80 H 03/24/19 13:20 Pulse Ox 97 03/24/19 13:20 - Orders/Labs/Meds Orders: Active Orders 24 hr Category Date Time Status Blood Glucose Check, Bedside [RC] ONETIME Care 03/24/19 11:10 Active EKG 12 Lead [EKG Documentation Completion] [RC] STAT Care 03/24/19 14:11 Active Sodium Chloride 0.9% [Normal Saline] 1,000 ml Med 03/24/19 13:42 Active IV .Bolus Sodium Chloride 0.9% [Saline Flush] Med 03/24/19 11:08 Active 10 ml FLUSH ASDIRECTED PRN Sodium Chloride 0.9% [Saline Flush] Med 03/24/19 11:08 Active 2.5 ml FLUSH ASDIRECTED PRN Saline Lock Insert [OM.PC] Stat Oth 03/24/19 11:08 Ordered Medication Orders Sodium Chloride (Normal Saline) 1,000 mls @ 999 mls/hr IV .Bolus ONE Stop: 03/24/19 14:42 Last Admin: 03/24/19 13:50 Dose: 999 mls/hr Sodium Chloride (Saline Flush) 10 ml FLUSH ASDIRECTED PRN PRN Reason: Keep Vein Open Last Admin: 03/24/19 11:36 Dose: 10 ml Sodium Chloride (Saline Flush) 2.5 ml FLUSH ASDIRECTED PRN PRN Reason: Keep Vein Open Last Admin: 03/24/19 11:36 Dose: 2.5 ml Labs: Laboratory Tests 03/24/19 03/24/19 03/24/19 Range/Units 11:20 11:20 11:20 WBC 10.04 (4.0-11.0) K/uL RBC 3.89 L (4.50-5.90) M/uL Hgb 11.1 L (13.0-17.0) g/dL Hct 34.7 L (38.0-50.0) % MCV 89.2 (80.0-98.0) fL MCH 28.5 (27.0-32.0) pg MCHC 32.0 (31.0-37.0) g/dL RDW Std Deviation 49.2 (28.0-62.0) fl RDW Coeff of [place] 15 (11.0-15.0) % Plt Count 332 (150-400) K/uL MPV 9.30 (7.40-12.00) fL Neut % (Auto) 74.5 (48.0-80.0) % Lymph % (Auto) 9.7 L (16.0-40.0) % [place] % (Auto) 14.4 (0.0-15.0) % Eos % (Auto) 1.2 (0.0-7.0) % Baso % (Auto) 0.2 (0.0-1.5) % Neut # (Auto) 7.5 H (1.4-5.7) K/uL Lymph # (Auto) 1.0 (0.6-2.4) K/uL [place] # (Auto) 1.5 H (0.0-0.8) K/uL Eos # (Auto) 0.1 (0.0-0.7) K/uL Baso # (Auto) 0.0 (0.0-0.1) K/uL Nucleated RBC % 0.0 /100WBC Nucleated RBCs # 0 K/uL INR 1.14 APTT 28.3 (18.6-31.3) SEC D-Dimer, Quantitative (0.0-0.50) mg/L FEU Sodium 138 (136-148) mmol/L Potassium 3.8 (3.5-5.1) mmol/L Chloride 101 (98-107) mmol/L Carbon Dioxide 26.0 (21.0-32.0) mmol/L BUN 12 (7.0-18.0) mg/dL Creatinine 1.4 H (0.8-1.3) mg/dL Est Cr Clr Drug Dosing 49.27 mL/min Estimated GFR (MDRD) 49.3 ml/min Glucose 175 H (74-106) mg/dL POC Glucose (60-110) mg/dL Calcium 9.0 (8.5-10.1) mg/dL Total Bilirubin 1.2 H (0.2-1.0) mg/dL AST 31 (15-37) IU/L ALT 64 H (14-63) IU/L Alkaline Phosphatase 219 H (46-116) U/L Total Protein 6.9 (6.4-8.2) g/dL Albumin 2.5 L (3.4-5.0) g/dL Globulin 4.4 H (2.6-4.0) g/dL Albumin/Globulin Ratio 0.6 L (0.9-1.6) Lipase 3626 H (73-393) U/L 03/24/19 03/24/19 Range/Units 11:20 11:24 WBC (4.0-11.0) K/uL RBC (4.50-5.90) M/uL Hgb (13.0-17.0) g/dL Hct (38.0-50.0) % MCV (80.0-98.0) fL MCH (27.0-32.0) pg MCHC (31.0-37.0) g/dL RDW Std Deviation (28.0-62.0) fl RDW Coeff of [place] (11.0-15.0) % Plt Count (150-400) K/uL MPV (7.40-12.00) fL Neut % (Auto) (48.0-80.0) % Lymph % (Auto) (16.0-40.0) % [place] % (Auto) (0.0-15.0) % Eos % (Auto) (0.0-7.0) % Baso % (Auto) (0.0-1.5) % Neut # (Auto) (1.4-5.7) K/uL Lymph # (Auto) (0.6-2.4) K/uL [place] # (Auto) (0.0-0.8) K/uL Eos # (Auto) (0.0-0.7) K/uL Baso # (Auto) (0.0-0.1) K/uL Nucleated RBC % /100WBC Nucleated RBCs # K/uL INR APTT (18.6-31.3) SEC D-Dimer, Quantitative 13.85 H (0.0-0.50) mg/L FEU Sodium (136-148) mmol/L Potassium (3.5-5.1) mmol/L Chloride (98-107) mmol/L Carbon Dioxide (21.0-32.0) mmol/L BUN (7.0-18.0) mg/dL Creatinine (0.8-1.3) mg/dL Est Cr Clr Drug Dosing mL/min Estimated GFR (MDRD) ml/min Glucose (74-106) mg/dL POC Glucose 180 H (60-110) mg/dL Calcium (8.5-10.1) mg/dL Total Bilirubin (0.2-1.0) mg/dL AST (15-37) IU/L ALT (14-63) IU/L Alkaline Phosphatase (46-116) U/L Total Protein (6.4-8.2) g/dL Albumin (3.4-5.0) g/dL Globulin (2.6-4.0) g/dL Albumin/Globulin Ratio (0.9-1.6) Lipase (73-393) U/L Meds: Medications Generic Name Dose Route Start Last Admin Trade Name Freq PRN Reason Stop Dose Admin Sodium Chloride 1,000 mls @ 999 mls/hr 03/24/19 13:42 03/24/19 13:50 Normal Saline IV 03/24/19 14:42 999 mls/hr .Bolus ONE Administration Sodium Chloride 10 ml 03/24/19 11:08 03/24/19 11:36 Saline Flush FLUSH 10 ml ASDIRECTED PRN Administration Keep Vein Open Sodium Chloride 2.5 ml 03/24/19 11:08 03/24/19 11:36 Saline Flush FLUSH 2.5 ml ASDIRECTED PRN Administration Keep Vein Open Discontinued Medications Generic Name Dose Route Start Last Admin Trade Name Freq PRN Reason Stop Dose Admin Sodium Chloride 1,000 mls @ 999 mls/hr 03/24/19 11:08 03/24/19 11:35 Normal Saline IV 03/24/19 12:08 999 mls/hr .Bolus ONE Administration Iopamidol 50 ml 03/24/19 13:00 03/24/19 13:00 Isovue Multipack-370 (76%) IVPUSH 03/24/19 13:01 50 ml ONETIME STA Administration Departure - Departure Time of Disposition: 14:19 Disposition: Home, Self-Care 01 Condition: Good Clinical Impression: Bilateral atelectasis - Discharge Information *PRESCRIPTION DRUG MONITORING PROGRAM REVIEWED*: No *COPY OF PRESCRIPTION DRUG MONITORING REPORT IN PATIENT FORTUNATO: No Referrals: Reuben Merrill MD [Primary Care Provider] - Forms: ED Department Discharge Additional Instructions: The following information is given to patients seen in the emergency department who are being discharged to home. This information is to outline your options for follow-up care. We provide all patients seen in our emergency department with a follow-up referral. The need for follow-up, as well as the timing and circumstances, are variable depending upon the specifics of your emergency department visit. If you don't have a primary care physician on staff, we will provide you with a referral. We always advise you to contact your personal physician following an emergency department visit to inform them of the circumstance of the visit and for follow-up with them and/or the need for any referrals to a consulting specialist. The emergency department will also refer you to a specialist when appropriate. This referral assures that you have the opportunity for follow-up care with a specialist. All of these measure are taken in an effort to provide you with optimal care, which includes your follow-up. Under all circumstances we always encourage you to contact your private physician who remains a resource for coordinating your care. When calling for follow-up care, please make the office aware that this follow-up is from your recent emergency room visit. If for any reason you are refused follow-up, please contact the [facility] Emergency Department at and asked to speak to the emergency department charge nurse. Take meds as directed, follow up with your primary care physician, return to ER if symptoms worsen or change. Use spirometer as directed [facility] [address] [place] [id number] - My Orders Last 24 Hours: My Active Orders 03/24/19 11:08 Sodium Chloride 0.9% [Saline Flush] 10 ml FLUSH ASDIRECTED PRN Sodium Chloride 0.9% [Saline Flush] 2.5 ml FLUSH ASDIRECTED PRN Saline Lock Insert [OM.PC] Stat 03/24/19 11:10 Blood Glucose Check, Bedside [RC] ONETIME 03/24/19 13:42 Sodium Chloride 0.9% [Normal Saline] 1,000 ml IV .Bolus 03/24/19 14:11 EKG 12 Lead [EKG Documentation Completion] [RC] STAT - Assessment/Plan Last 24 Hours: My Active Orders 03/24/19 11:08 Sodium Chloride 0.9% [Saline Flush] 10 ml FLUSH ASDIRECTED PRN Sodium Chloride 0.9% [Saline Flush] 2.5 ml FLUSH ASDIRECTED PRN Saline Lock Insert [OM.PC] Stat 03/24/19 11:10 Blood Glucose Check, Bedside [RC] ONETIME 03/24/19 13:42 Sodium Chloride 0.9% [Normal Saline] 1,000 ml IV .Bolus 03/24/19 14:11 EKG 12 Lead [EKG Documentation Completion] [RC] STAT
--- NOTE | 2019-03-24 14:11 | CT ---
INDICATION: Chest pain. Short of breath. History pancreatic cancer. Elevated D-dimer. TECHNIQUE: Multiple axial images were obtained from the apices to the diaphragm per the pulmonary emboli protocol after administration of 50 mL of Isovue-370 intravenously. Sagittal and coronal re-formatted images were obtained. COMPARISON: None. FINDINGS: There is atelectasis in the dependent portion of both lungs. There is scarring in the left lung base. The lungs otherwise are clear. There is no axillary, mediastinal or hilar adenopathy. There is no pulmonary artery embolism seen. There are degenerative changes in the spine. There are atherosclerotic calcifications. There is pneumobilia which is also seen on the previous CT scan of the abdomen and pelvis done 03/15/2019. The intravenously describe liver lesions are better evaluated on CT scan abdomen and pelvis on 03/15/2019. IMPRESSION: 1. No pulmonary artery embolism. 2. No acute abnormality in the chest. 3. Pneumobilia. Dictated by Alex Barriga MD @ 03/24/2019 2:10:43 PM Please note that all CT scans at this facility use dose modulation, iterative reconstruction, and/or weight-based dosing when appropriate to reduce radiation dose to as low as reasonably achievable. Dictated by: Alex Barriga MD @ 03/24/2019 14:11:02 (Electronically Signed)
[2019-03-24 14:38] VITALS: BP 152/77
== END 2019-03-24 14:38 | disposition home or self-care (01) ==
LOC: MW.ED 10:54
DX: J98.11 Atelectasis (principal); E11.9 Type 2 diabetes mellitus without complications; I10 Essential (primary) hypertension; I25.2 Old myocardial infarction; Z79.4 Long term (current) use of insulin; Z79.82 Long term (current) use of aspirin; Z79.899 Other long term (current) drug therapy
CPT/HCPCS: 36415; 71045; 71275; 80053; 82962; 83690; 85025; 85379; 85610; 85730; 93005; 96360; 96361; 99285; J7040; Q9967

== ENCOUNTER 2019-04-02 08:42 | Observation (INO) | payer MEDICARE, OTHER ==
[2019-04-02] MEDS ORDERED: Sodium Chloride 0.9% 10 ML Syringe FLUSH PRN (08:44)
[2019-04-02] MEDS ORDERED: Sodium Chloride 0.9% 2.5 ML Syringe FLUSH PRN (08:44)
--- NOTE | 2019-04-02 08:54 | EDM.PDOC ---
ED HPI GENERAL MEDICAL PROBLEM - General Chief Complaint: Cardiovascular Problem Stated Complaint: LOW BP Time Seen by Provider: 04/02/19 08:48 Source of Information: Reports: Patient History Limitations: Reports: No Limitations - History of Present Illness INITIAL COMMENTS - FREE TEXT/NARRATIVE: HISTORY AND PHYSICAL: History of present illness: Patient is a 74-year-old male who presents to the emergency room with a two- week history of shortness of breath and low blood pressure x2-3 days. Patient was recently diagnosed with an obstructive pancreatic mass of the gallbladder and had been transferred to [facility] in [place] for stent placement. He is due to start chemotherapy in [facility] next week for pancreatic cancer. He was recently seen in our emergency room on 03/24/19 for shortness of breath and had lab work along with a CT of the chest. No acute findings with the CTA and no PE. Patient reports he continues to have shortness of breath. He believes that his symptoms are related to "laying in bed all month" due to being hospitalized so frequently over the past several weeks. His does check his blood pressure daily, over the past 2-3 days he has had BP of 80s/50s. Today his blood pressure was 78/45. Patient reports that he previously had been on metoprolol 200 mg once daily. 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 Patient denies any fever, chills, headache, change in vision, syncope or near syncope. Denies any chest pain, back pain or cough. Denies any abdominal pain, nausea, vomiting, diarrhea, constipation or dysuria. Has not noted any blood in urine or stool. Patient has been eating and drinking appropriately. Past medical history of hypertension, [place] with stent placement, type 2 diabetes and the recent diagnosis of pancreatic cancer. Review of systems: As per history of present illness and below otherwise all systems reviewed and negative. Past medical history: As per history of present illness and as reviewed below otherwise noncontributory. Surgical history: As per history of present illness and as reviewed below otherwise noncontributory. Social history: See social history for further information Family history: As per history of present illness and as reviewed below otherwise noncontributory. Physical exam: General: Well-developed and well-nourished 74-year-old male. Alert and oriented. Nontoxic appearing and in no acute distress. HEENT: Atraumatic, normocephalic, pupils equal and reactive bilaterally, negative for conjunctival pallor or scleral icterus, mucous membranes moist, TMs normal bilaterally, throat clear, neck supple, nontender, trachea midline. No drooling or trismus noted. No meningeal signs. No hot potato voice noted. Lungs: Diminished bases bilaterally, left greater than right. Nondyspneic, chest nontender. Heart: S1S2, regular rate and rhythm without overt murmur Abdomen: Soft, nondistended, nontender. Negative for masses. Negative for costovertebral tenderness. Skin: Intact, warm, dry. No lesions or rashes noted. Extremities: Atraumatic, moves all extremities per self without difficulty or deficits, negative for cords or calf pain. Neurovascular unremarkable. Neuro: Awake, alert, oriented. Cranial nerves II through XII unremarkable. Cerebellum unremarkable. Motor and sensory unremarkable throughout. Exam nonfocal. Notes: Labs from 03/24/19: D.Dimer 13.85 (negative CTA), lipase 3626. Initial blood pressure upon arrival is 111/61. Lipase today has improved 1278. D.Dimer is higher at 17.64. Will repeat CTA at this time. Patient states that he feels improved after the IV fluids. CT shows no PE. Mildly prominent pre-cardiac lymph nodes measuring 1.3cm, enlarging since 03/15/2019. Dr Vale was consulted on this case; he is agreeable to accepting this patient for further care and management. Patient and are aware and agreeable to plan of care. We'll continue to monitor. Diagnostics: CBC, CMP, d-dimer, chest x-ray, troponin, EKG Therapeutics: IV fluid Impression: Dyspnea History of pancreatic cancer Elevated D.Dimer Plan: Observation admission Definitive disposition and diagnosis as appropriate pending reevaluation and review of above. Duration: Week(s): - Related Data Allergies Allergy/AdvReac Type Severity Reaction Status Date / Time No Known Allergies Allergy Verified 04/02/19 08:48 Home Meds: Home Meds Aspirin 325 mg PO DAILY 09/20/14 [History] Metoprolol Succinate 100 mg PO DAILY 09/20/14 [History] Pantoprazole Sodium [Protonix] 40 mg PO DAILY 03/24/19 [History] Folic Acid 0.8 mg PO DAILY 04/02/19 [History] Magnesium Oxide 500 mg PO DAILY 04/02/19 [History] Mamou-3/DHA/Epa/Fish Oil [[place] 3 500 Softgel] 1 each PO DAILY 04/02/19 [History ] Ubidecarenone [Coenzyme Q10] 10 mg PO BID 04/02/19 [History] glipiZIDE [Glucotrol] 5 mg PO BID 04/02/19 [History] Past Medical History HEENT History: Reports: Impaired Vision Cardiovascular History: Reports: Hypertension, [place], Stents Endocrine/Metabolic History: Reports: Diabetes, Type II Oncologic (Cancer) History: Reports: Pancreatic - Infectious Disease History Infectious Disease History: Reports: Chicken Pox, Measles, Mumps - Past Surgical History Cardiovascular Surgical History: Reports: None GI Surgical History: Reports: ERCP Other GI Surgeries/Procedures: bile stent placeds february 2019 Musculoskeletal Surgical History: Reports: Other (See Below) Other Musculoskeletal Surgeries/Procedures:: right total shoulder on 12/13/2018 Oncologic Surgical History: Reports: None Social & Family History - Family History Family Medical History: Noncontributory - Caffeine Use Caffeine Use: Reports: Coffee ED ROS GENERAL - Review of Systems Review Of Systems: ROS reveals no pertinent complaints other than HPI. ED EXAM, GENERAL - Physical Exam Exam: See Below (See dictation) Course - Vital Signs Last Recorded V/S: Last Vital Signs Temp 97.2 F 04/02/19 08:49 Pulse 97 04/02/19 10:00 Resp 20 04/02/19 10:00 BP 107/59 L 04/02/19 10:00 Pulse Ox 96 04/02/19 10:00 - Orders/Labs/Meds Orders: Active Orders 24 hr Category Date Time Status Admission Status [Patient Status] [ADT] Stat ADT 04/02/19 12:03 Active EKG Documentation Completion [RC] STAT Care 04/02/19 08:44 Active Sodium Chloride 0.9% [Normal Saline] 1,000 ml Med 04/02/19 08:45 Active IV ASDIRECTED Sodium Chloride 0.9% [Saline Flush] Med 04/02/19 08:44 Active 10 ml FLUSH ASDIRECTED PRN Sodium Chloride 0.9% [Saline Flush] Med 04/02/19 08:44 Active 2.5 ml FLUSH ASDIRECTED PRN Saline Lock Insert [OM.PC] Stat Oth 04/02/19 08:44 Ordered Medication Orders Sodium Chloride (Normal Saline) 1,000 mls @ 999 mls/hr IV ASDIRECTED IRA Last Admin: 04/02/19 08:56 Dose: 999 mls/hr Sodium Chloride (Saline Flush) 10 ml FLUSH ASDIRECTED PRN PRN Reason: Keep Vein Open Last Admin: 04/02/19 08:57 Dose: 10 ml Sodium Chloride (Saline Flush) 2.5 ml FLUSH ASDIRECTED PRN PRN Reason: Keep Vein Open Last Admin: 04/02/19 08:56 Dose: 2.5 ml Labs: Laboratory Tests 04/02/19 04/02/19 04/02/19 Range/Units 08:50 08:50 08:50 WBC 13.92 H (4.0-11.0) K/uL RBC 3.93 L (4.50-5.90) M/uL Hgb 10.8 L (13.0-17.0) g/dL Hct 34.3 L (38.0-50.0) % MCV 87.3 (80.0-98.0) fL MCH 27.5 (27.0-32.0) pg MCHC 31.5 (31.0-37.0) g/dL RDW Std Deviation 47.2 (28.0-62.0) fl RDW Coeff of [place] 15 (11.0-15.0) % Plt Count 322 (150-400) K/uL MPV 9.40 (7.40-12.00) fL Neut % (Auto) 82.1 H (48.0-80.0) % Lymph % (Auto) 5.2 L (16.0-40.0) % [place] % (Auto) 12.2 (0.0-15.0) % Eos % (Auto) 0.4 (0.0-7.0) % Baso % (Auto) 0.1 (0.0-1.5) % Neut # (Auto) 11.4 H (1.4-5.7) K/uL Lymph # (Auto) 0.7 (0.6-2.4) K/uL [place]once # (Auto) 1.7 H (0.0-0.8) K/uL Eos # (Auto) 0.1 (0.0-0.7) K/uL Baso # (Auto) 0.0 (0.0-0.1) K/uL Nucleated RBC % 0.0 /100WBC Nucleated RBCs # 0 K/uL D-Dimer, Quantitative (0.0-0.50) mg/L FEU ABG pH (7.35-7.45) ABG pCO2 (35-45) mmHG ABG pO2 (75-100) mmHG ABG HCO3 (22-26) mEq/L ABG Total CO2 ABG Base Excess (-2.0-2.0) Sodium 135 L (136-148) mmol/L Potassium 3.5 (3.5-5.1) mmol/L Chloride 99 (98-107) mmol/L Carbon Dioxide 22.5 (21.0-32.0) mmol/L BUN 14 (7.0-18.0) mg/dL Creatinine 1.5 H (0.8-1.3) mg/dL Est Cr Clr Drug Dosing 45.99 mL/min Estimated GFR (MDRD) 45.5 ml/min Glucose 216 H (74-106) mg/dL Calcium 8.4 L (8.5-10.1) mg/dL Total Bilirubin 1.4 H (0.2-1.0) mg/dL AST 42 H (15-37) IU/L ALT 46 (14-63) IU/L Alkaline Phosphatase 380 H (46-116) U/L Troponin I < 0.050 (0.000-0.056) ng/mL B-Natriuretic Peptide 126 H (<100) PG/ML Total Protein 6.2 L (6.4-8.2) g/dL Albumin 2.2 L (3.4-5.0) g/dL Globulin 4.0 (2.6-4.0) g/dL Albumin/Globulin Ratio 0.6 L (0.9-1.6) Lipase 1278 H (73-393) U/L Urine Color Urine Appearance Urine pH (5.0-8.0) Ur Specific [place] (1.001-1.035) Urine Protein (NEGATIVE) mg/dL Urine Glucose (UA) (NEGATIVE) mg/dL Urine Ketones (NEGATIVE) mg/dL Urine Occult Blood (NEGATIVE) Urine Nitrite (NEGATIVE) Urine Bilirubin (NEGATIVE) Urine Urobilinogen (<2.0) EU/dL Ur Leukocyte Esterase (NEGATIVE) Urine RBC (0-2/HPF) Urine WBC (0-5/HPF) Ur Epithelial Cells (NONE-FEW) Urine Bacteria (NEGATIVE) Urine Mucus (NONE-MOD) 04/02/19 04/02/19 04/02/19 Range/Units 08:50 10:30 11:00 WBC (4.0-11.0) K/uL RBC (4.50-5.90) M/uL Hgb (13.0-17.0) g/dL Hct (38.0-50.0) % MCV (80.0-98.0) fL MCH (27.0-32.0) pg MCHC (31.0-37.0) g/dL RDW Std Deviation (28.0-62.0) fl RDW Coeff of [place] (11.0-15.0) % Plt Count (150-400) K/uL MPV (7.40-12.00) fL Neut % (Auto) (48.0-80.0) % Lymph % (Auto) (16.0-40.0) % [place]once % (Auto) (0.0-15.0) % Eos % (Auto) (0.0-7.0) % Baso % (Auto) (0.0-1.5) % Neut # (Auto) (1.4-5.7) K/uL Lymph # (Auto) (0.6-2.4) K/uL Ponce # (Auto) (0.0-0.8) K/uL Eos # (Auto) (0.0-0.7) K/uL Baso # (Auto) (0.0-0.1) K/uL Nucleated RBC % /100WBC Nucleated RBCs # K/uL D-Dimer, Quantitative 17.64 H (0.0-0.50) mg/L FEU ABG pH 7.497 H (7.35-7.45) ABG pCO2 30 L (35-45) mmHG ABG pO2 67 L (75-100) mmHG ABG HCO3 23 (22-26) mEq/L ABG Total CO2 21.6 ABG Base Excess 0.4 (-2.0-2.0) Sodium (136-148) mmol/L Potassium (3.5-5.1) mmol/L Chloride (98-107) mmol/L Carbon Dioxide (21.0-32.0) mmol/L BUN (7.0-18.0) mg/dL Creatinine (0.8-1.3) mg/dL Est Cr Clr Drug Dosing mL/min Estimated GFR (MDRD) ml/min Glucose (74-106) mg/dL Calcium (8.5-10.1) mg/dL Total Bilirubin (0.2-1.0) mg/dL AST (15-37) IU/L ALT (14-63) IU/L Alkaline Phosphatase (46-116) U/L Troponin I (0.000-0.056) ng/mL B-Natriuretic Peptide (<100) PG/ML Total Protein (6.4-8.2) g/dL Albumin (3.4-5.0) g/dL Globulin (2.6-4.0) g/dL Albumin/Globulin Ratio (0.9-1.6) Lipase (73-393) U/L Urine Color YELLOW Urine Appearance CLEAR Urine pH 6.0 (5.0-8.0) Ur Specific [place] 1.020 (1.001-1.035) Urine Protein TRACE H (NEGATIVE) mg/dL Urine Glucose (UA) NEGATIVE (NEGATIVE) mg/dL Urine Ketones NEGATIVE (NEGATIVE) mg/dL Urine Occult Blood TRACE-LYSED H (NEGATIVE) Urine Nitrite NEGATIVE (NEGATIVE) Urine Bilirubin NEGATIVE (NEGATIVE) Urine Urobilinogen 0.2 (<2.0) EU/dL Ur Leukocyte Esterase NEGATIVE (NEGATIVE) Urine RBC 0-2 (0-2/HPF) Urine WBC 0-1 (0-5/HPF) Ur Epithelial Cells RARE (NONE-FEW) Urine Bacteria RARE (NEGATIVE) Urine Mucus LIGHT (NONE-MOD) Meds: Medications Generic Name Dose Route Start Last Admin Trade Name Freq PRN Reason Stop Dose Admin Sodium Chloride 1,000 mls @ 999 mls/hr 04/02/19 08:45 04/02/19 08:56 Normal Saline IV 999 mls/hr ASDIRECTED IRA Administration Sodium Chloride 10 ml 04/02/19 08:44 04/02/19 08:57 Saline Flush FLUSH 10 ml ASDIRECTED PRN Administration Keep Vein Open Sodium Chloride 2.5 ml 04/02/19 08:44 04/02/19 08:56 Saline Flush FLUSH 2.5 ml ASDIRECTED PRN Administration Keep Vein Open Discontinued Medications Generic Name Dose Route Start Last Admin Trade Name Frecelina PRN Reason Stop Dose Admin Iopamidol 50 ml 04/02/19 11:57 04/02/19 11:57 Isovue Multipack-370 (76%) IVPUSH 04/02/19 11:58 50 ml ONETIME ONE Administration Departure - Departure Time of Disposition: 12:19 Disposition: Refer to Observation Clinical Impression: History of pancreatic cancer, Elevated d-dimer Dyspnea Qualifiers: Dyspnea type: unspecified Qualified Code(s): R06.00 - Dyspnea, unspecified Referrals: PCP,Unknown [Primary Care Provider] - Forms: ED Department Discharge - My Orders Last 24 Hours: My Active Orders 04/02/19 08:44 EKG Documentation Completion [RC] STAT Sodium Chloride 0.9% [Saline Flush] 10 ml FLUSH ASDIRECTED PRN Sodium Chloride 0.9% [Saline Flush] 2.5 ml FLUSH ASDIRECTED PRN Saline Lock Insert [OM.PC] Stat 04/02/19 08:45 Sodium Chloride 0.9% [Normal Saline] 1,000 ml IV ASDIRECTED 04/02/19 12:03 Admission Status [Patient Status] [ADT] Stat - Assessment/Plan Last 24 Hours: My Active Orders 04/02/19 08:44 EKG Documentation Completion [RC] STAT Sodium Chloride 0.9% [Saline Flush] 10 ml FLUSH ASDIRECTED PRN Sodium Chloride 0.9% [Saline Flush] 2.5 ml FLUSH ASDIRECTED PRN Saline Lock Insert [OM.PC] Stat 04/02/19 08:45 Sodium Chloride 0.9% [Normal Saline] 1,000 ml IV ASDIRECTED 04/02/19 12:03 Admission Status [Patient Status] [ADT] Stat
[2019-04-02] MEDS: Sodium Chloride 0.9% 1,000 ML IV SCH ×3 (08:56→21:45)
[2019-04-02 09:25] LABS: CHLORIDE,CL 99 mmol/L (98-107); SODIUM,NA 135 mmol/L (136-148)
--- NOTE | 2019-04-02 09:33 | CR ---
EXAMINATION: Portable chest radiograph. HISTORY: Shortness of breath. Comparison: 03/24/2019. FINDINGS: The trachea is midline. The cardiomediastinal silhouette is within normal limits. Likely minimal left pleural effusion. Osseous structures appear unremarkable. IMPRESSION: 1. Likely minimal left pleural effusion with trace adjacent atelectasis/infiltrate.
[2019-04-02] MEDS ORDERED: Iopamidol 755 MG/ML 500 ML Multipack Bottle IVPUSH ONE (11:57)
--- NOTE | 2019-04-02 11:58 | CT ---
EXAMINATION: CTA chest HISTORY: Shortness of breath COMPARISON: 03/24/2019 TECHNIQUE: Axial CT imaging obtained through the chest following the administration of 50 mL of Isovue-370 in the right arm. Coronal and sagittal reconstructions obtained. FINDINGS: There is a 4 mm nodule within the superior aspect of the right lower lobe and a 5 mm nodule along the right lateral aspect of the right lower lobe, both have slightly increased in size in comparison to the recent CT. There is is no focal consolidation, pleural effusion, or pneumothorax. The heart is normal in size without a pericardial effusion. Mildly enlarged 1.3 cm pericardial lymph nodes are noted otherwise no mediastinal or hilar lymphadenopathy. Moderate coronary artery calcifications. The thoracic aorta is normal in caliber. The main and central pulmonary arteries appear patent however there is a suboptimal bolus timing making distal pulmonary arteries difficult to evaluate. Trace pneumobilia. No suspicious osseous abnormalities identified. No suspicious osseous abnormalities. IMPRESSION: 1. Main and central pulmonary arteries appear patent without identified pulmonary embolism. 2. Moderate coronary artery calcifications. 3. Several tiny pulmonary nodules again noted. 4. Mildly prominent precardiac lymph nodes measuring up to 1.3 cm, enlarging since 03/15/2019.
[2019-04-02] MEDS ORDERED: Acetaminophen 325 MG Tab PO PRN (14:03)
[2019-04-02] MEDS ORDERED: Ondansetron 4 MG/2 ML SDV IVPUSH PRN (14:03)
[2019-04-02] MEDS ORDERED: methylPREDNISolone Sodium Succinate 125 MG/2 ML SDV IVPUSH ONE (14:05)
[2019-04-02] MEDS ORDERED: Enoxaparin 40 MG/0.4 ML Syringe SUBCUT SCH (14:15)
--- NOTE | 2019-04-02 14:21 | PCM.HP ---
<Selena Santillan M - Last Filed: 04/02/19 14:25> H&P History of Present Illness - General Date of Service: 04/02/19 Admit Problem/Dx: Admission Diagnosis/Problem Admission Diagnosis/Problem Dyspnea Source of Information: Patient History Limitations: Reports: No Limitations - History of Present Illness Initial Comments - Free Text/Narative: This 74 year old male with pmh of CAD with LA and PCI, DM Type 2, HLD and recently diagnoses pancreatic cancer presents to the ED today with concerns of not feeling well including low blood pressures. He reports since discharge from [facility] in [place] a couple weeks ago, reports he was transferred there from here for blood infection s/p biliary stent placement due to obstructive jaundice and pancreatic mass. He was treated with Augmentin and Levaquin for Klebsiella infection. He reports he feels lightheaded, dizzy and short of breath. He reports he hears wheezing a lot. Denies productive cough or fevers and chills. He reports the SOB worsens with activity. He denies symptoms when lying down flat. He reports he is eating ok, not drinking many fluids. He denies nausea, vomiting, abdominal pain or bloating. No urinary concerns. Reports diarrhea, 3- 4 times daily. No black or bloody BMs. In the ED mild leukocytosis noted, 13,920, Hgb 10.8, D Dimer elevated at 17.64. BUN 14, Cr 1.5. Bilirubin 1.4, which is decreasing along with lipase at 1200. UA negative. CXR revealed possible pleural effusion or atelectasis. With D Dimer elevated, CT Angion obtained with revealed, no consolidation, pleural effusion or pneumothorax, No PE. Several pulmonary nodules noted. Mildly prominent precardiac lymph nodes measuring up to 1.3 cm, enlarging since March 15, 2019. - Related Data Allergies/Adverse Reactions: Allergies Allergy/AdvReac Type Severity Reaction Status Date / Time No Known Allergies Allergy Verified 04/02/19 08:48 Home Medications: Home Meds Aspirin 325 mg PO DAILY 09/20/14 [History] Metoprolol Succinate 100 mg PO DAILY 09/20/14 [History] Pantoprazole Sodium [Protonix] 40 mg PO DAILY 03/24/19 [History] Folic Acid 0.8 mg PO DAILY 04/02/19 [History] L.acidoph,Paracasei, B.lactis [Probiotic] 1 each PO DAILY 04/02/19 [History] Magnesium Oxide 500 mg PO DAILY 04/02/19 [History] Ramona-3/DHA/Epa/Fish Oil [Ramona 3 500 Softgel] 1 each PO DAILY 04/02/19 [History ] Ubidecarenone [Coenzyme Q10] 10 mg PO DAILY 04/02/19 [History] glipiZIDE [Glucotrol] 5 mg PO BID 04/02/19 [History] Past Medical History HEENT History: Reports: Impaired Vision Cardiovascular History: Reports: CAD, Hypertension, LA, Stents. Denies: Afib, Blood Clots/VTE/DVT Respiratory History: Reports: None. Denies: Asthma, COPD Gastrointestinal History: Reports: None. Denies: GERD, GI Bleed Genitourinary History: Reports: None. Denies: Chronic Renal Insuffiency Musculoskeletal History: Reports: None Neurological History: Reports: None. Denies: CVA, TIA Psychiatric History: Reports: None Endocrine/Metabolic History: Reports: Diabetes, Type II, Obesity/BMI 30+ Oncologic (Cancer) History: Reports: Pancreatic - Infectious Disease History Infectious Disease History: Reports: Chicken Pox, Measles, Mumps - Past Surgical History HEENT Surgical History: Reports: Cataract Surgery Cardiovascular Surgical History: Reports: None GI Surgical History: Reports: ERCP, Other (See Below) (biliary stent placement March 2019) Other GI Surgeries/Procedures: bile stent placeds february 2019 Musculoskeletal Surgical History: Reports: Other (See Below) Other Musculoskeletal Surgeries/Procedures:: right total shoulder on 12/13/2018 Oncologic Surgical History: Reports: None Social & Family History - Family History Family Medical History: Noncontributory - Tobacco Use Smoking Status *Q: Former Smoker Used Tobacco, but Quit: Yes Month/Year Tobacco Last Used: 30 Second Hand Smoke Exposure: No - Caffeine Use Caffeine Use: Reports: Coffee, Soda, Tea - Recreational Drug Use Recreational Drug Use: No - Living Situation & Occupation Living situation: Reports: Occupation: Retired H&P Review of Systems - Review of Systems: Review Of Systems: See Below General: Reports: Weakness, Fatigue. Denies: Fever, Chills HEENT: Reports: No Symptoms. Denies: Headaches, Sinus Congestion, Vertigo, Visual Changes Pulmonary: Reports: Shortness of Breath, Wheezing. Denies: Pleuritic Chest Pain , Cough, Sputum, Hemoptysis Cardiovascular: Reports: Dyspnea on Exertion, Lightheadedness, Blood Pressure Problem. Denies: Chest Pain, Palpitations, Orthopnea Gastrointestinal: Reports: Diarrhea. Denies: Abdominal Pain, Black Stool, Bloody Stool, Distension Genitourinary: Reports: No Symptoms. Denies: Dysuria, Frequency, Burning Musculoskeletal: Reports: No Symptoms Skin: Reports: No Symptoms Psychiatric: Reports: No Symptoms Neurological: Reports: No Symptoms Hematologic/Lymphatic: Reports: No Symptoms Immunologic: Reports: No Symptoms Exam - Exam Exam: See Below - Vital Signs Vital Signs: Last Vital Signs Temp 98.3 F 04/02/19 13:30 Pulse 91 04/02/19 13:30 Resp 21 H 04/02/19 13:30 BP 137/68 04/02/19 13:30 Pulse Ox 98 04/02/19 13:30 Weight: 104.383 kg - Exam General: Alert, Oriented, Cooperative HEENT: Conjunctiva Clear, Mucosa Moist & [place], Pupils Equal Neck: Supple, Trachea Midline, Full Range of Motion. No: Lymphadenopathy Lungs: Wheezing (scant throughout). No: Normal Respiratory Effort (dyspnea noted with speech) Cardiovascular: Regular Rate, Regular Rhythm, Normal S1, Normal S2. No: Systolic Murmur GI/Abdominal Exam: Normal Bowel Sounds, Soft, Non-Tender Extremities: Normal Inspection, Normal Range of Motion, Non-Tender, No Pedal Edema Neuro Extensive - Mental Status: Alert, Oriented x3 Neuro Extensive - Motor, Sensory, Reflexes: CN II-XII Intact Psychiatric: Alert, Normal Affect, Normal Mood - Patient Data Lab Results Last 24 hrs: Laboratory Results - last 24 hr 04/02/19 04/02/19 04/02/19 Range/Units 08:50 08:50 08:50 WBC 13.92 H (4.0-11.0) K/uL RBC 3.93 L (4.50-5.90) M/uL Hgb 10.8 L (13.0-17.0) g/dL Hct 34.3 L (38.0-50.0) % MCV 87.3 (80.0-98.0) fL MCH 27.5 (27.0-32.0) pg MCHC 31.5 (31.0-37.0) g/dL RDW Std Deviation 47.2 (28.0-62.0) fl RDW Coeff of [place] 15 (11.0-15.0) % Plt Count 322 (150-400) K/uL MPV 9.40 (7.40-12.00) fL Neut % (Auto) 82.1 H (48.0-80.0) % Lymph % (Auto) 5.2 L (16.0-40.0) % Stephens % (Auto) 12.2 (0.0-15.0) % Eos % (Auto) 0.4 (0.0-7.0) % Baso % (Auto) 0.1 (0.0-1.5) % Neut # (Auto) 11.4 H (1.4-5.7) K/uL Lymph # (Auto) 0.7 (0.6-2.4) K/uL Stephens # (Auto) 1.7 H (0.0-0.8) K/uL Eos # (Auto) 0.1 (0.0-0.7) K/uL Baso # (Auto) 0.0 (0.0-0.1) K/uL Nucleated RBC % 0.0 /100WBC Nucleated RBCs # 0 K/uL D-Dimer, Quantitative (0.0-0.50) mg/L FEU ABG pH (7.35-7.45) ABG pCO2 (35-45) mmHG ABG pO2 (75-100) mmHG ABG HCO3 (22-26) mEq/L ABG Total CO2 ABG Base Excess (-2.0-2.0) Sodium 135 L (136-148) mmol/L Potassium 3.5 (3.5-5.1) mmol/L Chloride 99 (98-107) mmol/L Carbon Dioxide 22.5 (21.0-32.0) mmol/L BUN 14 (7.0-18.0) mg/dL Creatinine 1.5 H (0.8-1.3) mg/dL Est Cr Clr Drug Dosing 45.99 mL/min Estimated GFR (MDRD) 45.5 ml/min Glucose 216 H (74-106) mg/dL Calcium 8.4 L (8.5-10.1) mg/dL Total Bilirubin 1.4 H (0.2-1.0) mg/dL AST 42 H (15-37) IU/L ALT 46 (14-63) IU/L Alkaline Phosphatase 380 H (46-116) U/L Troponin I < 0.050 (0.000-0.056) ng/mL B-Natriuretic Peptide 126 H (<100) PG/ML Total Protein 6.2 L (6.4-8.2) g/dL Albumin 2.2 L (3.4-5.0) g/dL Globulin 4.0 (2.6-4.0) g/dL Albumin/Globulin Ratio 0.6 L (0.9-1.6) Lipase 1278 H (73-393) U/L Urine Color Urine Appearance Urine pH (5.0-8.0) Ur Specific [place] (1.001-1.035) Urine Protein (NEGATIVE) mg/dL Urine Glucose (UA) (NEGATIVE) mg/dL Urine Ketones (NEGATIVE) mg/dL Urine Occult Blood (NEGATIVE) Urine Nitrite (NEGATIVE) Urine Bilirubin (NEGATIVE) Urine Urobilinogen (<2.0) EU/dL Ur Leukocyte Esterase (NEGATIVE) Urine RBC (0-2/HPF) Urine WBC (0-5/HPF) Ur Epithelial Cells (NONE-FEW) Urine Bacteria (NEGATIVE) Urine Mucus (NONE-MOD) 04/02/19 04/02/19 04/02/19 Range/Units 08:50 10:30 11:00 WBC (4.0-11.0) K/uL RBC (4.50-5.90) M/uL Hgb (13.0-17.0) g/dL Hct (38.0-50.0) % MCV (80.0-98.0) fL MCH (27.0-32.0) pg MCHC (31.0-37.0) g/dL RDW Std Deviation (28.0-62.0) fl RDW Coeff of [place] (11.0-15.0) % Plt Count (150-400) K/uL MPV (7.40-12.00) fL Neut % (Auto) (48.0-80.0) % Lymph % (Auto) (16.0-40.0) % Stephens % (Auto) (0.0-15.0) % Eos % (Auto) (0.0-7.0) % Baso % (Auto) (0.0-1.5) % Neut # (Auto) (1.4-5.7) K/uL Lymph # (Auto) (0.6-2.4) K/uL [place] # (Auto) (0.0-0.8) K/uL Eos # (Auto) (0.0-0.7) K/uL Baso # (Auto) (0.0-0.1) K/uL Nucleated RBC % /100WBC Nucleated RBCs # K/uL D-Dimer, Quantitative 17.64 H (0.0-0.50) mg/L FEU ABG pH 7.497 H (7.35-7.45) ABG pCO2 30 L (35-45) mmHG ABG pO2 67 L (75-100) mmHG ABG HCO3 23 (22-26) mEq/L ABG Total CO2 21.6 ABG Base Excess 0.4 (-2.0-2.0) Sodium (136-148) mmol/L Potassium (3.5-5.1) mmol/L Chloride (98-107) mmol/L Carbon Dioxide (21.0-32.0) mmol/L BUN (7.0-18.0) mg/dL Creatinine (0.8-1.3) mg/dL Est Cr Clr Drug Dosing mL/min Estimated GFR (MDRD) ml/min Glucose (74-106) mg/dL Calcium (8.5-10.1) mg/dL Total Bilirubin (0.2-1.0) mg/dL AST (15-37) IU/L ALT (14-63) IU/L Alkaline Phosphatase (46-116) U/L Troponin I (0.000-0.056) ng/mL B-Natriuretic Peptide (<100) PG/ML Total Protein (6.4-8.2) g/dL Albumin (3.4-5.0) g/dL Globulin (2.6-4.0) g/dL Albumin/Globulin Ratio (0.9-1.6) Lipase (73-393) U/L Urine Color YELLOW Urine Appearance CLEAR Urine pH 6.0 (5.0-8.0) Ur Specific [place] 1.020 (1.001-1.035) Urine Protein TRACE H (NEGATIVE) mg/dL Urine Glucose (UA) NEGATIVE (NEGATIVE) mg/dL Urine Ketones NEGATIVE (NEGATIVE) mg/dL Urine Occult Blood TRACE-LYSED H (NEGATIVE) Urine Nitrite NEGATIVE (NEGATIVE) Urine Bilirubin NEGATIVE (NEGATIVE) Urine Urobilinogen 0.2 (<2.0) EU/dL Ur Leukocyte Esterase NEGATIVE (NEGATIVE) Urine RBC 0-2 (0-2/HPF) Urine WBC 0-1 (0-5/HPF) Ur Epithelial Cells RARE (NONE-FEW) Urine Bacteria RARE (NEGATIVE) Urine Mucus LIGHT (NONE-MOD) Result Diagrams: 04/02/19 08:50 04/02/19 08:50 *Q Meaningful Use (ADM) - VTE Risk Assess *Q Each Risk Factor Represents 1 Point: Obesity ( BMI > 25 kg/m2), Abnormal Pulmonary Function (COPD) Total Score 1 Point Risk Factors: 2 Each Risk Factor Represents 2 Points: Malignancy (present or previous) Total Score 2 Point Risk Factors: 2 Each Risk Factor Represents 3 Points: Age 75 Years or Greater Total Score 3 Point Risk Factors: 3 Each Risk Factor Represents 5 Points: None Total Score 5 Point Risk Factors: 0 Venous Thromboembolism Risk Factor Score *Q: 7 - Problem List (1) Hypotension SNOMED Code(s): 07340740 ICD Code: I95.9 - HYPOTENSION, UNSPECIFIED Status: Acute Current Visit: Yes (2) Dyspnea SNOMED Code(s): 060745002 ICD Code: R06.00 - DYSPNEA, UNSPECIFIED Status: Acute Current Visit: Yes Qualifiers: Dyspnea type: shortness of breath Qualified Code(s): R06.02 - Shortness of breath; R06.00 - Dyspnea, unspecified; R06.01 - Orthopnea (3) CAD (coronary artery disease) SNOMED Code(s): 58132188 ICD Code: I25.10 - ATHSCL HEART DISEASE OF [place] CORONARY ARTERY W/O ANG PCTRS Status: Chronic Current Visit: Yes Qualifiers: Coronary Disease-Associated Artery/Lesion type: [place] artery [place] vs. transplanted heart: [place] heart Associated angina: without angina Qualified Code(s): I25.10 - Atherosclerotic heart disease of [place] coronary artery without angina pectoris (4) HTN (hypertension) SNOMED Code(s): 58714923 ICD Code: I10 - ESSENTIAL (PRIMARY) HYPERTENSION Status: Chronic Current Visit: Yes Qualifiers: Hypertension type: essential hypertension Qualified Code(s): I10 - Essential (primary) hypertension (5) History of pancreatic cancer SNOMED Code(s): 13694731692235 ICD Code: Z85.07 - PERSONAL HISTORY OF MALIGNANT NEOPLASM OF PANCREAS Status: Chronic Current Visit: Yes Problem List Initiated/Reviewed/Updated: Yes Orders Last 24hrs: Active Orders 24 hr Category Date Time Status Admission Status [Patient Status] [ADT] Stat ADT 04/02/19 12:03 Active Communication Order [RC] PRN Care 04/02/19 14:07 Ordered EKG Documentation Completion [RC] STAT Care 04/02/19 08:44 Active Orthostatic Vital Signs [RC] ASDIRECTED Care 04/02/19 14:05 Ordered Oxygen Therapy [RC] PRN Care 04/02/19 14:03 Ordered RT Aerosol Therapy [RC] ASDIRECTED Care 04/02/19 14:05 Ordered Telemetry Monitoring [Cardiac Monitoring] [RC] . Care 04/02/19 14:07 Ordered DIRECTED Up With Assistance [RC] ASDIRECTED Care 04/02/19 14:03 Ordered VTE/DVT Education [RC] PER UNIT ROUTINE Care 04/02/19 14:03 Ordered Vital Signs [RC] Q4H Care 04/02/19 14:03 Ordered Respiratory Care Assess and Treatment [CONS] Routine Cons 04/02/19 14:03 Ordered [place] [employer] Diet [DIET] Diet 04/02/19 Lunch Ordered CBC WITH AUTO DIFF [HEME] AM Lab 04/03/19 05:11 Ordered COMPREHENSIVE METABOLIC PN,CMP [CHEM] AM Lab 04/03/19 05:11 Ordered Acetaminophen [Tylenol] Med 04/02/19 14:03 Ordered 650 mg PO Q4H PRN Albuterol/Ipratropium [DuoNeb 3.0-0.5 MG/3 ML] Med 04/02/19 14:05 Ordered 3 ml NEB Q6HRRT Aspirin Med 04/03/19 09:00 Ordered 325 mg PO DAILY Enoxaparin [Lovenox] Med 04/02/19 14:15 Ordered 40 mg SUBCUT Q24H Folic Acid [Folic Acid] Med 04/03/19 09:00 Ordered 0.8 mg PO DAILY L.acidoph,Paracasei, B.lactis [Probiotic] Med 04/03/19 09:00 Ordered 1 each PO DAILY Magnesium Oxide Med 04/03/19 09:00 Ordered 500 mg PO DAILY Ramona-3/DHA/Epa/Fish Oil [Ramona 3 500 Softgel] Med 04/03/19 09:00 Ordered 1 each PO DAILY Ondansetron [Zofran] Med 04/02/19 14:03 Ordered 4 mg IVPUSH Q4H PRN Pantoprazole [ProTONIX] Med 04/03/19 09:00 Ordered 40 mg PO DAILY Sodium Chloride 0.9% @ 125 MLS/HR (1000ml) Med 04/02/19 14:15 Ordered Sodium Chloride 0.9% [Normal Saline] 1,000 ml IV ASDIRECTED Sodium Chloride 0.9% [Normal Saline] 1,000 ml Med 04/02/19 08:45 Active IV ASDIRECTED Sodium Chloride 0.9% [Saline Flush] Med 04/02/19 08:44 Active 10 ml FLUSH ASDIRECTED PRN Sodium Chloride 0.9% [Saline Flush] Med 04/02/19 08:44 Active 2.5 ml FLUSH ASDIRECTED PRN Ubidecarenone [Coenzyme Q10] Med 04/03/19 09:00 Ordered 10 mg PO DAILY Saline Lock Insert [OM.PC] Stat Oth 04/02/19 08:44 Ordered Resuscitation Status Routine Resus Stat 04/02/19 14:03 Ordered Medication Orders Acetaminophen (Tylenol) 650 mg PO Q4H PRN PRN Reason: Pain (Mild 1-3) Albuterol/Ipratropium (Duoneb 3.0-0.5 Mg/3 Ml) 3 ml NEB Q6HRRT PENDING SALE TO [facility] Aspirin (Aspirin) 325 mg PO DAILY PENDING SALE TO [facility] Enoxaparin Sodium (Lovenox) 40 mg SUBCUT Q24H IRA Sodium Chloride (Normal Saline) 1,000 mls @ 999 mls/hr IV ASDIRECTED IRA Last Admin: 04/02/19 08:56 Dose: 999 mls/hr Sodium Chloride (Normal Saline) 1,000 mls @ 125 mls/hr IV ASDIRECTED PENDING SALE TO [facility] Non-Formulary Medication (Folic Acid [Folic Acid]) 0.8 mg PO DAILY PENDING SALE TO [facility] Non-Formulary Medication (L.Acidoph,Paracasei, B.Lactis [Probiotic]) 1 each PO DAILY PENDING SALE TO [facility] Non-Formulary Medication (Magnesium Oxide) 500 mg PO DAILY PENDING SALE TO [facility] Non-Formulary Medication (Ramona-3/Dha/Epa/Fish Oil [Ramona 3 500 Softgel]) 1 each PO DAILY IRA Non-Formulary Medication (Ubidecarenone [Coenzyme Q10]) 10 mg PO DAILY PENDING SALE TO [facility] Ondansetron HCl (Zofran) 4 mg IVPUSH Q4H PRN PRN Reason: Nausea Pantoprazole Sodium (Protonix) 40 mg PO DAILY IRA Sodium Chloride (Saline Flush) 10 ml FLUSH ASDIRECTED PRN PRN Reason: Keep Vein Open Last Admin: 04/02/19 08:57 Dose: 10 ml Sodium Chloride (Saline Flush) 2.5 ml FLUSH ASDIRECTED PRN PRN Reason: Keep Vein Open Last Admin: 04/02/19 08:56 Dose: 2.5 ml Assessment/Plan Comment:: This 74 year old male admitted with hypotension and dyspnea 1. Hypotension: dehydration. Continue IVFs for now. HOLD Metoprolol for now. Dose recently decreased by Charging [employer]. Did take this morning. 2. Dyspnea: Mild wheezing noted. Will give dose of Solumedrol along with Duonebs and monitor dyspnea. Hx of tobacco use. May also consider inflammation from pulmonary nodules and enlarging precardiac lymph nodes. Eddie and updated on these findings on CT scan 3. Diarrhea: Concerning since he just finished antibiotic course from bacteremia. Stool studies and monitor. 4. Pancreatic cancer: Chemotherapy to start next Tuesday along with port placement. Biliary stent placed end of February. Bilirubin improved along with lipase 5. DM Type 2: Hold oral meds, Novolog SSI with BS checks TIDAC. VTE prophylaxis: Lovenox. Dispo: 1-2 days pending improvement. <Yosi Vale - Last Filed: 04/02/19 16:28> H&P History of Present Illness - General Admit Problem/Dx: Admission Diagnosis/Problem Admission Diagnosis/Problem Dyspnea I have examined the patient independently of Selena Santillan CNP. I have discussed the case with her. I have reviewed and agree with the examination and plan as outlined by her. Please see orders. Exam - Vital Signs Vital Signs: Last Vital Signs Temp 36.8 C 04/02/19 13:30 Pulse 91 04/02/19 13:30 Resp 21 H 04/02/19 13:30 BP 137/68 04/02/19 13:30 Pulse Ox 98 04/02/19 14:00 Orthostatic Blood Pressure [ 95/54 Standing] Orthostatic Blood Pressure [ 133/62 Sitting] Orthostatic Blood Pressure [ 134/60 Supine] - Patient Data Lab Results Last 24 hrs: Laboratory Results - last 24 hr 04/02/19 04/02/19 04/02/19 Range/Units 08:50 08:50 08:50 WBC 13.92 H (4.0-11.0) K/uL RBC 3.93 L (4.50-5.90) M/uL Hgb 10.8 L (13.0-17.0) g/dL Hct 34.3 L (38.0-50.0) % MCV 87.3 (80.0-98.0) fL MCH 27.5 (27.0-32.0) pg MCHC 31.5 (31.0-37.0) g/dL RDW Std Deviation 47.2 (28.0-62.0) fl RDW Coeff of [place] 15 (11.0-15.0) % Plt Count 322 (150-400) K/uL MPV 9.40 (7.40-12.00) fL Neut % (Auto) 82.1 H (48.0-80.0) % Lymph % (Auto) 5.2 L (16.0-40.0) % [place] % (Auto) 12.2 (0.0-15.0) % Eos % (Auto) 0.4 (0.0-7.0) % Baso % (Auto) 0.1 (0.0-1.5) % Neut # (Auto) 11.4 H (1.4-5.7) K/uL Lymph # (Auto) 0.7 (0.6-2.4) K/uL [place] # (Auto) 1.7 H (0.0-0.8) K/uL Eos # (Auto) 0.1 (0.0-0.7) K/uL Baso # (Auto) 0.0 (0.0-0.1) K/uL Nucleated RBC % 0.0 /100WBC Nucleated RBCs # 0 K/uL D-Dimer, Quantitative (0.0-0.50) mg/L FEU ABG pH (7.35-7.45) ABG pCO2 (35-45) mmHG ABG pO2 (75-100) mmHG ABG HCO3 (22-26) mEq/L ABG Total CO2 ABG Base Excess (-2.0-2.0) Sodium 135 L (136-148) mmol/L Potassium 3.5 (3.5-5.1) mmol/L Chloride 99 (98-107) mmol/L Carbon Dioxide 22.5 (21.0-32.0) mmol/L BUN 14 (7.0-18.0) mg/dL Creatinine 1.5 H (0.8-1.3) mg/dL Est Cr Clr Drug Dosing 45.99 mL/min Estimated GFR (MDRD) 45.5 ml/min Glucose 216 H (74-106) mg/dL Calcium 8.4 L (8.5-10.1) mg/dL Total Bilirubin 1.4 H (0.2-1.0) mg/dL AST 42 H (15-37) IU/L ALT 46 (14-63) IU/L Alkaline Phosphatase 380 H (46-116) U/L Troponin I < 0.050 (0.000-0.056) ng/mL B-Natriuretic Peptide 126 H (<100) PG/ML Total Protein 6.2 L (6.4-8.2) g/dL Albumin 2.2 L (3.4-5.0) g/dL Globulin 4.0 (2.6-4.0) g/dL Albumin/Globulin Ratio 0.6 L (0.9-1.6) Lipase 1278 H (73-393) U/L Urine Color Urine Appearance Urine pH (5.0-8.0) Ur Specific [place] (1.001-1.035) Urine Protein (NEGATIVE) mg/dL Urine Glucose (UA) (NEGATIVE) mg/dL Urine Ketones (NEGATIVE) mg/dL Urine Occult Blood (NEGATIVE) Urine Nitrite (NEGATIVE) Urine Bilirubin (NEGATIVE) Urine Urobilinogen (<2.0) EU/dL Ur Leukocyte Esterase (NEGATIVE) Urine RBC (0-2/HPF) Urine WBC (0-5/HPF) Ur Epithelial Cells (NONE-FEW) Urine Bacteria (NEGATIVE) Urine Mucus (NONE-MOD) 04/02/19 04/02/19 04/02/19 Range/Units 08:50 10:30 11:00 WBC (4.0-11.0) K/uL RBC (4.50-5.90) M/uL Hgb (13.0-17.0) g/dL Hct (38.0-50.0) % MCV (80.0-98.0) fL MCH (27.0-32.0) pg MCHC (31.0-37.0) g/dL RDW Std Deviation (28.0-62.0) fl RDW Coeff of [place] (11.0-15.0) % Plt Count (150-400) K/uL MPV (7.40-12.00) fL Neut % (Auto) (48.0-80.0) % Lymph % (Auto) (16.0-40.0) % [place] % (Auto) (0.0-15.0) % Eos % (Auto) (0.0-7.0) % Baso % (Auto) (0.0-1.5) % Neut # (Auto) (1.4-5.7) K/uL Lymph # (Auto) (0.6-2.4) K/uL [place] # (Auto) (0.0-0.8) K/uL Eos # (Auto) (0.0-0.7) K/uL Baso # (Auto) (0.0-0.1) K/uL Nucleated RBC % /100WBC Nucleated RBCs # K/uL D-Dimer, Quantitative 17.64 H (0.0-0.50) mg/L FEU ABG pH 7.497 H (7.35-7.45) ABG pCO2 30 L (35-45) mmHG ABG pO2 67 L (75-100) mmHG ABG HCO3 23 (22-26) mEq/L ABG Total CO2 21.6 ABG Base Excess 0.4 (-2.0-2.0) Sodium (136-148) mmol/L Potassium (3.5-5.1) mmol/L Chloride (98-107) mmol/L Carbon Dioxide (21.0-32.0) mmol/L BUN (7.0-18.0) mg/dL Creatinine (0.8-1.3) mg/dL Est Cr Clr Drug Dosing mL/min Estimated GFR (MDRD) ml/min Glucose (74-106) mg/dL Calcium (8.5-10.1) mg/dL Total Bilirubin (0.2-1.0) mg/dL AST (15-37) IU/L ALT (14-63) IU/L Alkaline Phosphatase (46-116) U/L Troponin I (0.000-0.056) ng/mL B-Natriuretic Peptide (<100) PG/ML Total Protein (6.4-8.2) g/dL Albumin (3.4-5.0) g/dL Globulin (2.6-4.0) g/dL Albumin/Globulin Ratio (0.9-1.6) Lipase (73-393) U/L Urine Color YELLOW Urine Appearance CLEAR Urine pH 6.0 (5.0-8.0) Ur Specific [place] 1.020 (1.001-1.035) Urine Protein TRACE H (NEGATIVE) mg/dL Urine Glucose (UA) NEGATIVE (NEGATIVE) mg/dL Urine Ketones NEGATIVE (NEGATIVE) mg/dL Urine Occult Blood TRACE-LYSED H (NEGATIVE) Urine Nitrite NEGATIVE (NEGATIVE) Urine Bilirubin NEGATIVE (NEGATIVE) Urine Urobilinogen 0.2 (<2.0) EU/dL Ur Leukocyte Esterase NEGATIVE (NEGATIVE) Urine RBC 0-2 (0-2/HPF) Urine WBC 0-1 (0-5/HPF) Ur Epithelial Cells RARE (NONE-FEW) Urine Bacteria RARE (NEGATIVE) Urine Mucus LIGHT (NONE-MOD) Result Diagrams: 04/02/19 08:50 04/02/19 08:50 Orders Last 24hrs: Active Orders 24 hr Category Date Time Status Admission Status [Patient Status] [ADT] Stat ADT 04/02/19 12:03 Active Blood Glucose Check, Bedside [RC] TIDAC Care 04/02/19 14:24 Active Communication Order [RC] PRN Care 04/02/19 14:07 Active EKG Documentation Completion [RC] STAT Care 04/02/19 08:44 Active Orthostatic Vital Signs [RC] ASDIRECTED Care 04/02/19 14:05 Active Oxygen Therapy [RC] PRN Care 04/02/19 14:03 Active RT Aerosol Therapy [RC] ASDIRECTED Care 04/02/19 14:05 Active Telemetry Monitoring [Cardiac Monitoring] [RC] . Care 04/02/19 14:07 Active DIRECTED Up With Assistance [RC] ASDIRECTED Care 04/02/19 14:03 Active VTE/DVT Education [RC] PER UNIT ROUTINE Care 04/02/19 14:03 Active Vital Signs [RC] Q4H Care 04/02/19 14:03 Active Respiratory Care Assess and Treatment [CONS] Routine Cons 04/02/19 14:03 Active [employer] Diet [DIET] Diet 04/02/19 Lunch Active CBC WITH AUTO DIFF [HEME] AM Lab 04/03/19 05:11 Ordered CDIFF TOX A+B [OP] Routine Lab 04/02/19 14:17 Ordered COMPREHENSIVE METABOLIC PN,CMP [CHEM] AM Lab 04/03/19 05:11 Ordered CULTURE STOOL + CAMPY+SHIGATOX [RM] Routine Lab 04/02/19 14:17 Ordered Acetaminophen [Tylenol] Med 04/02/19 14:03 Active 650 mg PO Q4H PRN Albuterol/Ipratropium [DuoNeb 3.0-0.5 MG/3 ML] Med 04/02/19 14:05 Active 3 ml NEB Q6HRRT Aspirin Med 04/03/19 09:00 Active 325 mg PO DAILY Enoxaparin [Lovenox] Med 04/02/19 14:15 Active 40 mg SUBCUT Q24H Fish Oil/[place]-3 Fatty Acids [Fish Oil] Med 04/03/19 09:00 Active 1 gm PO DAILY Insulin Aspart [NovoLOG] Med 04/02/19 17:00 Active See Protocol SUBCUT TIDAC Ondansetron [Zofran] Med 04/02/19 14:03 Active 4 mg IVPUSH Q4H PRN Pantoprazole [ProTONIX] Med 04/03/19 09:00 Active 40 mg PO DAILY Patient's Own Medication [Ptom] Med 04/03/19 09:00 Active 1 each PO DAILY Patient's Own Medication [Ptom] Med 04/03/19 09:00 Active 1 each PO DAILY Patient's Own Medication [Ptom] Med 04/03/19 09:00 Active 1 each PO DAILY Patient's Own Medication [Ptom] Med 04/03/19 09:00 Active 1 each PO DAILY Sodium Chloride 0.9% [Normal Saline] 1,000 ml Med 04/02/19 08:45 Active IV ASDIRECTED Sodium Chloride 0.9% [Normal Saline] 1,000 ml [facility] 04/02/19 14:15 Active IV ASDIRECTED Sodium Chloride 0.9% [Saline Flush] [facility] 04/02/19 08:44 Active 10 ml FLUSH ASDIRECTED PRN Sodium Chloride 0.9% [Saline Flush] [facility] 04/02/19 08:44 Active 2.5 ml FLUSH ASDIRECTED PRN Isolation [COMM] Stat Ot 04/02/19 14:18 Ordered Saline Lock Insert [OM.PC] Stat Ot 04/02/19 08:44 Ordered Resuscitation Status Routine Resus Stat 04/02/19 14:03 Ordered Medication Orders Acetaminophen (Tylenol) 650 mg PO Q4H PRN PRN Reason: Pain (Mild 1-3) Albuterol/Ipratropium (Duoneb 3.0-0.5 Mg/3 Ml) 3 ml NEB Q6HRRT PENDING SALE TO [facility] Last Admin: 04/02/19 14:42 Dose: 3 ml Aspirin (Aspirin) 325 mg PO DAILY PENDING S[facility] HEALTH Enoxaparin Sodium (Lovenox) 40 mg SUBCUT Q24H [facility] Last Admin: 04/02/19 14:50 Dose: 40 mg Fish Oil (Fish Oil) 1 gm PO DAILY [facility] Sodium Chloride (Normal Saline) 1,000 mls @ 999 mls/hr IV ASDIRECTED [facility]END[facility] TO [facility] Last Admin: 04/02/19 14:52 Dose: 999 mls/hr Infusion: 04/02/19 09:57 Dose: 999 mls/hr Admin: 04/02/19 08:56 Dose: 999 mls/hr Sodium Chloride (Normal Saline) 1,000 mls @ 125 mls/hr IV ASDIRECTED [facility] TO [facility] Insulin Aspart (Novolog) 0 unit SUBCUT TIDAC [facility]; Protocol Ondansetron HCl (Zofran) 4 mg IVPUSH Q4H PRN PRN Reason: Nausea Pantoprazole Sodium (Protonix) 40 mg PO DAILY [facility] Folic Acid [Folic (Acid] 0.8 Mg) 1 each PO DAILY [facility] L.Acidoph,Paracasei, B.Lactis [Probiotic ] 1 Each 1 each PO DAILY [facility] Magnesium Oxide 500 (Mg) 1 each PO DAILY [facility] Ubidecarenone [ (Coenzyme Q10] 10 Mg) 1 each PO DAILY [facility] Sodium Chloride (Saline Flush) 10 ml FLUSH ASDIRECTED PRN PRN Reason: Keep Vein Open Last Admin: 04/02/19 08:57 Dose: 10 ml Sodium Chloride (Saline Flush) 2.5 ml FLUSH ASDIRECTED PRN PRN Reason: Keep Vein Open Last Admin: 04/02/19 08:56 Dose: 2.5 ml
[2019-04-02] MEDS: Albuterol/Ipratropium 3.0-0.5 MG/3 ML Neb Soln NEB SCH ×2 (14:42→17:35)
[2019-04-02] MEDS: Insulin Aspart 100 Units/ML 3 ML Pen SUBCUT SCH (19:45)
[2019-04-03] MEDS: Albuterol/Ipratropium 3.0-0.5 MG/3 ML Neb Soln NEB SCH ×2 (00:45→05:55)
[2019-04-03] MEDS: Sodium Chloride 0.9% 1,000 ML IV SCH ×2 (06:00)
[2019-04-03] MEDS: Insulin Aspart 100 Units/ML 3 ML Pen SUBCUT SCH (07:36)
[2019-04-03 07:55] VITALS: BP 103/55
[2019-04-03] MEDS ORDERED: UBIDECARENONE 10 MG PO SCH (09:00)
[2019-04-03] MEDS ORDERED: Azithromycin 250 MG Tab PO SCH (09:00)
[2019-04-03] MEDS ORDERED: L.Acidoph,Paracasei, B.Lactis [Probiotic] 1 EACH PO SCH (09:00)
[2019-04-03] MEDS ORDERED: Fish Oil/Omega-3 Fatty Acids 1 Gm Cap PO SCH (09:00)
[2019-04-03] MEDS ORDERED: FOLIC ACID 0.8 MG PO SCH (09:00)
[2019-04-03] MEDS ORDERED: Aspirin 325 MG Tab PO SCH (09:00)
[2019-04-03] MEDS ORDERED: Pantoprazole 40 MG Tab.CR PO SCH (09:00)
--- NOTE | 2019-04-03 10:07 | PCM.DCSUM1 ---
<Selena Santillan - Last Filed: 04/03/19 10:27> Discharge Summary - Hospital Course Brief History: This 74 year old male with pmh of CAD with [place] and PCI, DM Type 2 , HLD and recently diagnoses pancreatic cancer presents to the ED today with concerns of not feeling well including low blood pressures. He reports since discharge from [facility] in [place] a couple weeks ago, reports he was transferred there from here for blood infection s/p biliary stent placement due to obstructive jaundice and pancreatic mass. He was treated with Augmentin and Levaquin for Klebsiella infection. He reports he feels lightheaded, dizzy and short of breath. He reports he hears wheezing a lot. Denies productive cough or fevers and chills. He reports the SOB worsens with activity. He denies symptoms when lying down flat. He reports he is eating ok, not drinking many fluids. He denies nausea, vomiting, abdominal pain or bloating. No urinary concerns. Reports diarrhea, 3-4 times daily. No black or bloody BMs. In the ED mild leukocytosis noted, 13,920, Hgb 10.8, D Dimer elevated at 17.64. BUN 14, Cr 1.5. Bilirubin 1.4, which is decreasing along with lipase at 1200. UA negative. CXR revealed possible pleural effusion or atelectasis. With D Dimer elevated, CT Angion obtained with revealed, no consolidation, pleural effusion or pneumothorax, No PE. Several pulmonary nodules noted. Mildly prominent precardiac lymph nodes measuring up to 1.3 cm, enlarging since March 15, 2019. - Discharge Data Discharge Date: 04/03/19 Discharge Disposition: Home, Self-Care 01 Condition: Good - Discharge Diagnosis/Problem(s) (1) Hypotension SNOMED Code(s): 02192467 ICD Code: I95.9 - HYPOTENSION, UNSPECIFIED Status: Acute (2) Dyspnea SNOMED Code(s): 236099000 ICD Code: R06.00 - DYSPNEA, UNSPECIFIED Status: Acute Qualifiers: Dyspnea type: shortness of breath Qualified Code(s): R06.02 - Shortness of breath; R06.00 - Dyspnea, unspecified; R06.01 - Orthopnea (3) CAD (coronary artery disease) SNOMED Code(s): 26396015 ICD Code: I25.10 - ATHSCL HEART DISEASE OF [place] CORONARY ARTERY W/O ANG PCTRS Status: Chronic Qualifiers: Coronary Disease-Associated Artery/Lesion type: [place] artery [place] vs. transplanted heart: [place] heart Associated angina: without angina Qualified Code(s): I25.10 - Atherosclerotic heart disease of [place] coronary artery without angina pectoris (4) HTN (hypertension) SNOMED Code(s): 57011705 ICD Code: I10 - ESSENTIAL (PRIMARY) HYPERTENSION Status: Chronic Qualifiers: Hypertension type: essential hypertension Qualified Code(s): I10 - Essential (primary) hypertension (5) History of pancreatic cancer SNOMED Code(s): 84523775888656 ICD Code: Z85.07 - PERSONAL HISTORY OF MALIGNANT NEOPLASM OF PANCREAS Status: Chronic (6) Campylobacter diarrhea SNOMED Code(s): 99434142 ICD Code: A04.5 - CAMPYLOBACTER ENTERITIS Status: Acute - Patient Summary/Data Consults: Consultations 04/02/19 14:03 Respiratory Care Assess and Treatment [CONS] Routine - Patient Instructions Diet: Usual Diet as Tolerated Activity: As Tolerated, No Strenuous Activities Showering/Bathing: May Shower Notify Provider of: Fever, Increased Pain, Swelling and Redness, Drainage, Nausea and/or Vomiting Other/Special Instructions: Monitor BP at home, if BP starts elevating past 140 on the top, restart Metoprolol at 50 mg daily. - Discharge Plan *PRESCRIPTION DRUG MONITORING PROGRAM REVIEWED*: Not Applicable *COPY OF PRESCRIPTION DRUG MONITORING REPORT IN PATIENT FORTUNATO: Not Applicable Prescriptions/Med Rec: Azithromycin [Zithromax] 500 mg PO Q24H #4 tablet Home Medications: Home Meds Aspirin 325 mg PO DAILY 09/20/14 [History] Pantoprazole Sodium [Protonix] 40 mg PO DAILY 03/24/19 [History] Folic Acid 0.8 mg PO DAILY 04/02/19 [History] L.acidoph,Paracasei, B.lactis [Probiotic] 1 each PO DAILY 04/02/19 [History] Magnesium Oxide 500 mg PO DAILY 04/02/19 [History] [place]-3/DHA/Epa/Fish Oil [[place] 3 500 Softgel] 1 each PO DAILY 04/02/19 [History ] Ubidecarenone [Coenzyme Q10] 10 mg PO DAILY 04/02/19 [History] glipiZIDE [Glucotrol] 5 mg PO BID 04/02/19 [History] Azithromycin [Zithromax] 500 mg PO Q24H #4 tablet 04/03/19 [Rx] Oxygen Therapy Mode: Room Air Patient Handouts: Hypotension, [id number], Campylobacter Gastroenteritis, Pancreatic Cancer, Azithromycin tablets - Discharge Summary/Plan Comment DC Time >30 min.: No Discharge Summary/Plan Comment: Admitting Diagnoses: Dyspnea Hypotension Diarrhea Discharge Diagnoses: Campylobacter diarrhea Dyspnea Hypotension Dehydration Other PMH Pancreatic cancer CAD HTN DM Type 2 Eddie was admitted secondary to dyspnea as well as hypotension and some diarrhea. He was noted to be positive for Campylobacter, treated with Azithromycin. Solumedrol and duonebs trialed to help with dyspnea, helped mildly but otherwise he just felt jittery. He was continued on IVFs overnight for dehydration. BP stable. He is asymptomatic and is very eager to go home. He has follow up on April 11 at [facility] in [place] next week to start chemotherapy. For hypotension he is to hold Metoprolol for now, monitor BPs at home and to restart on 50 mg if BP reaches over 140 SBP. Him and verbalized understanding. Encouraged to drink plenty of fluids at home. He is to return to ED or clinic if concerns should arise. - General Info Date of Service: 04/03/19 Admission Dx/Problem (Free Text: Admission Diagnosis/Problem Admission Diagnosis/Problem Dyspnea Subjective Update: Sitting up in the chair, appears comfortable and does not appear SOB. Talkative , reports feeling better. No chest pain. Reports mild SOB with ambulation after walking a loop. Soft stool this morning, not watery diarrhea. No abdominal pain. Able to eat and drink with breakfast this morning. Functional Status: Reports: Pain Controlled, Tolerating Diet, Ambulating, Urinating - Review of Systems General: Reports: No Symptoms. Denies: Weakness, Fatigue Pulmonary: Reports: No Symptoms. Denies: Shortness of Breath Cardiovascular: Reports: No Symptoms. Denies: Chest Pain Gastrointestinal: Reports: No Symptoms. Denies: Abdominal Pain, Nausea, Vomiting Genitourinary: Reports: No Symptoms Musculoskeletal: Reports: No Symptoms Skin: Reports: No Symptoms Neurological: Reports: No Symptoms Psychiatric: Reports: No Symptoms - Patient Data Vitals - Most Recent: Last Vital Signs Temp 97.3 F 04/03/19 07:40 Pulse 98 04/03/19 07:40 Resp 14 04/03/19 07:40 BP 103/55 L 04/03/19 07:40 Pulse Ox 91 L 04/03/19 07:40 Orthostatic Blood Pressure [ 82/49 Standing] Orthostatic Blood Pressure [ 103/58 Sitting] Orthostatic Blood Pressure [ 103/55 Supine] Weight - Most Recent: 104.383 kg I&O - Last 24 hours: Intake & Output 04/02/19 04/03/19 04/03/19 22:59 06:59 14:59 Intake Total 1186 1019 338 Output Total 150 625 Balance 1036 394 338 Lab Results - Last 24 hrs: Laboratory Results - last 24 hr 04/02/19 04/02/19 04/02/19 Range/Units 08:50 10:30 11:00 WBC (4.0-11.0) K/uL RBC (4.50-5.90) M/uL Hgb (13.0-17.0) g/dL Hct (38.0-50.0) % MCV (80.0-98.0) fL MCH (27.0-32.0) pg MCHC (31.0-37.0) g/dL RDW Std Deviation (28.0-62.0) fl RDW Coeff of [place] (11.0-15.0) % Plt Count (150-400) K/uL MPV (7.40-12.00) fL Neut % (Auto) (48.0-80.0) % Lymph % (Auto) (16.0-40.0) % [place] % (Auto) (0.0-15.0) % Eos % (Auto) (0.0-7.0) % Baso % (Auto) (0.0-1.5) % Neut # (Auto) (1.4-5.7) K/uL Lymph # (Auto) (0.6-2.4) K/uL [place] # (Auto) (0.0-0.8) K/uL Eos # (Auto) (0.0-0.7) K/uL Baso # (Auto) (0.0-0.1) K/uL Nucleated RBC % /100WBC Nucleated RBCs # K/uL D-Dimer, Quantitative 17.64 H (0.0-0.50) mg/L FEU ABG pH 7.497 H (7.35-7.45) ABG pCO2 30 L (35-45) mmHG ABG pO2 67 L (75-100) mmHG ABG HCO3 23 (22-26) mEq/L ABG Total CO2 21.6 ABG Base Excess 0.4 (-2.0-2.0) Sodium (136-148) mmol/L Potassium (3.5-5.1) mmol/L Chloride (98-107) mmol/L Carbon Dioxide (21.0-32.0) mmol/L BUN (7.0-18.0) mg/dL Creatinine (0.8-1.3) mg/dL Est Cr Clr Drug Dosing mL/min Estimated GFR (MDRD) ml/min Glucose (74-106) mg/dL POC Glucose (60-110) mg/dL Calcium (8.5-10.1) mg/dL Total Bilirubin (0.2-1.0) mg/dL AST (15-37) IU/L ALT (14-63) IU/L Alkaline Phosphatase (46-116) U/L Total Protein (6.4-8.2) g/dL Albumin (3.4-5.0) g/dL Globulin (2.6-4.0) g/dL Albumin/Globulin Ratio (0.9-1.6) Urine Color YELLOW Urine Appearance CLEAR Urine pH 6.0 (5.0-8.0) Ur Specific [place] 1.020 (1.001-1.035) Urine Protein TRACE H (NEGATIVE) mg/dL Urine Glucose (UA) NEGATIVE (NEGATIVE) mg/dL Urine Ketones NEGATIVE (NEGATIVE) mg/dL Urine Occult Blood TRACE-LYSED H (NEGATIVE) Urine Nitrite NEGATIVE (NEGATIVE) Urine Bilirubin NEGATIVE (NEGATIVE) Urine Urobilinogen 0.2 (<2.0) EU/dL Ur Leukocyte Esterase NEGATIVE (NEGATIVE) Urine RBC 0-2 (0-2/HPF) Urine WBC 0-1 (0-5/HPF) Ur Epithelial Cells RARE (NONE-FEW) Urine Bacteria RARE (NEGATIVE) Urine Mucus LIGHT (NONE-MOD) 04/02/19 04/02/19 04/03/19 Range/Units 16:49 21:44 05:00 WBC 8.16 (4.0-11.0) K/uL RBC 3.37 L (4.50-5.90) M/uL Hgb 9.5 L (13.0-17.0) g/dL Hct 29.6 L (38.0-50.0) % MCV 87.8 (80.0-98.0) fL MCH 28.2 (27.0-32.0) pg MCHC 32.1 (31.0-37.0) g/dL RDW Std Deviation 48.4 (28.0-62.0) fl RDW Coeff of [place] 15 (11.0-15.0) % Plt Count 297 (150-400) K/uL MPV 9.60 (7.40-12.00) fL Neut % (Auto) 91.9 H (48.0-80.0) % Lymph % (Auto) 3.8 L (16.0-40.0) % [place] % (Auto) 4.3 (0.0-15.0) % Eos % (Auto) 0.0 (0.0-7.0) % Baso % (Auto) 0.0 (0.0-1.5) % Neut # (Auto) 7.5 H (1.4-5.7) K/uL Lymph # (Auto) 0.3 L (0.6-2.4) K/uL [place] # (Auto) 0.4 (0.0-0.8) K/uL Eos # (Auto) 0.0 (0.0-0.7) K/uL Baso # (Auto) 0.0 (0.0-0.1) K/uL Nucleated RBC % 0.0 /100WBC Nucleated RBCs # 0 K/uL D-Dimer, Quantitative (0.0-0.50) mg/L FEU ABG pH (7.35-7.45) ABG pCO2 (35-45) mmHG ABG pO2 (75-100) mmHG ABG HCO3 (22-26) mEq/L ABG Total CO2 ABG Base Excess (-2.0-2.0) Sodium (136-148) mmol/L Potassium (3.5-5.1) mmol/L Chloride (98-107) mmol/L Carbon Dioxide (21.0-32.0) mmol/L BUN (7.0-18.0) mg/dL Creatinine (0.8-1.3) mg/dL Est Cr Clr Drug Dosing mL/min Estimated GFR (MDRD) ml/min Glucose (74-106) mg/dL POC Glucose 156 H 288 H (60-110) mg/dL Calcium (8.5-10.1) mg/dL Total Bilirubin (0.2-1.0) mg/dL AST (15-37) IU/L ALT (14-63) IU/L Alkaline Phosphatase (46-116) U/L Total Protein (6.4-8.2) g/dL Albumin (3.4-5.0) g/dL Globulin (2.6-4.0) g/dL Albumin/Globulin Ratio (0.9-1.6) Urine Color Urine Appearance Urine pH (5.0-8.0) Ur Specific [place] (1.001-1.035) Urine Protein (NEGATIVE) mg/dL Urine Glucose (UA) (NEGATIVE) mg/dL Urine Ketones (NEGATIVE) mg/dL Urine Occult Blood (NEGATIVE) Urine Nitrite (NEGATIVE) Urine Bilirubin (NEGATIVE) Urine Urobilinogen (<2.0) EU/dL Ur Leukocyte Esterase (NEGATIVE) Urine RBC (0-2/HPF) Urine WBC (0-5/HPF) Ur Epithelial Cells (NONE-FEW) Urine Bacteria (NEGATIVE) Urine Mucus (NONE-MOD) 04/03/19 04/03/19 Range/Units 05:00 06:12 WBC (4.0-11.0) K/uL RBC (4.50-5.90) M/uL Hgb (13.0-17.0) g/dL Hct (38.0-50.0) % MCV (80.0-98.0) fL MCH (27.0-32.0) pg MCHC (31.0-37.0) g/dL RDW Std Deviation (28.0-62.0) fl RDW Coeff of [place] (11.0-15.0) % Plt Count (150-400) K/uL MPV (7.40-12.00) fL Neut % (Auto) (48.0-80.0) % Lymph % (Auto) (16.0-40.0) % [place] % (Auto) (0.0-15.0) % Eos % (Auto) (0.0-7.0) % Baso % (Auto) (0.0-1.5) % Neut # (Auto) (1.4-5.7) K/uL Lymph # (Auto) (0.6-2.4) K/uL [place] # (Auto) (0.0-0.8) K/uL Eos # (Auto) (0.0-0.7) K/uL Baso # (Auto) (0.0-0.1) K/uL Nucleated RBC % /100WBC Nucleated RBCs # K/uL D-Dimer, Quantitative (0.0-0.50) mg/L FEU ABG pH (7.35-7.45) ABG pCO2 (35-45) mmHG ABG pO2 (75-100) mmHG ABG HCO3 (22-26) mEq/L ABG Total CO2 ABG Base Excess (-2.0-2.0) Sodium 140 (136-148) mmol/L Potassium 3.3 L (3.5-5.1) mmol/L Chloride 105 (98-107) mmol/L Carbon Dioxide 24.9 (21.0-32.0) mmol/L BUN 14 (7.0-18.0) mg/dL Creatinine 1.3 (0.8-1.3) mg/dL Est Cr Clr Drug Dosing 53.06 mL/min Estimated GFR (MDRD) 53.7 ml/min Glucose 259 H (74-106) mg/dL POC Glucose 253 H (60-110) mg/dL Calcium 7.8 L (8.5-10.1) mg/dL Total Bilirubin 0.9 (0.2-1.0) mg/dL AST 27 (15-37) IU/L ALT 36 (14-63) IU/L Alkaline Phosphatase 296 H (46-116) U/L Total Protein 5.4 L (6.4-8.2) g/dL Albumin 1.8 L (3.4-5.0) g/dL Globulin 3.6 (2.6-4.0) g/dL Albumin/Globulin Ratio 0.5 L (0.9-1.6) Urine Color Urine Appearance Urine pH (5.0-8.0) Ur Specific [place] (1.001-1.035) Urine Protein (NEGATIVE) mg/dL Urine Glucose (UA) (NEGATIVE) mg/dL Urine Ketones (NEGATIVE) mg/dL Urine Occult Blood (NEGATIVE) Urine Nitrite (NEGATIVE) Urine Bilirubin (NEGATIVE) Urine Urobilinogen (<2.0) EU/dL Ur Leukocyte Esterase (NEGATIVE) Urine RBC (0-2/HPF) Urine WBC (0-5/HPF) Ur Epithelial Cells (NONE-FEW) Urine Bacteria (NEGATIVE) Urine Mucus (NONE-MOD) [facility] Results - Last 24 hrs: Microbiology 04/03/19 05:20 Clostridium difficile Toxin A & B - Final Stool / Feces Negative for C.Diff Toxin/AG REFERENCE RANGE: NEGATIVE 04/03/19 05:20 Campylobacter Antigen Assay - Final Stool / Feces Positive Campylobacter Ag Med Orders - Current: Current Medications Acetaminophen (Tylenol) 650 mg PO Q4H PRN PRN Reason: Pain (Mild 1-3) Aspirin (Aspirin) 325 mg PO DAILY [facility] Last Admin: 04/03/19 09:07 Dose: 325 mg Azithromycin (Zithromax) 500 mg PO Q24H [facility] Last Admin: 04/03/19 09:07 Dose: 500 mg Enoxaparin Sodium (Lovenox) 40 mg SUBCUT Q24H [facility] Last Admin: 04/02/19 14:50 Dose: 40 mg Fish Oil (Fish Oil) 1 gm PO DAILY [facility] Last Admin: 04/03/19 09:07 Dose: 1 gm Sodium Chloride (Normal Saline) 1,000 mls @ 999 mls/hr IV ASDIRECTED [facility] Last Infusion: 04/02/19 15:53 Dose: Infused Sodium Chloride (Normal Saline) 1,000 mls @ 125 mls/hr IV ASDIRECTED [facility] Last Admin: 04/03/19 06:00 Dose: 125 mls/hr Insulin Aspart (Novolog) 0 unit SUBCUT TIDAC [facility]; Protocol Last Admin: 04/03/19 07:36 Dose: 2 unit Ondansetron HCl (Zofran) 4 mg IVPUSH Q4H PRN PRN Reason: Nausea Pantoprazole Sodium (Protonix) 40 mg PO DAILY [facility] Last Admin: 04/03/19 09:07 Dose: 40 mg Folic Acid [Folic (Acid] 0.8 Mg) 1 each PO DAILY [facility] Last Admin: 04/03/19 09:46 Dose: Not Given L.Acidoph,Paracasei, B.Lactis [Probiotic ] 1 Each 1 each PO DAILY [facility] Last Admin: 04/03/19 09:46 Dose: Not Given Magnesium Oxide 500 (Mg) 1 each PO DAILY [facility] Last Admin: 04/03/19 09:46 Dose: Not Given Ubidecarenone [ (Coenzyme Q10] 10 Mg) 1 each PO DAILY [facility] Last Admin: 04/03/19 09:46 Dose: Not Given Sodium Chloride (Saline Flush) 10 ml FLUSH ASDIRECTED PRN PRN Reason: Keep Vein Open Last Admin: 04/02/19 08:57 Dose: 10 ml Sodium Chloride (Saline Flush) 2.5 ml FLUSH ASDIRECTED PRN PRN Reason: Keep Vein Open Last Admin: 04/02/19 08:56 Dose: 2.5 ml Discontinued Medications Albuterol/Ipratropium (Duoneb 3.0-0.5 Mg/3 Ml) 3 ml NEB Q6HRRT [facility] Last Admin: 04/03/19 05:55 Dose: 3 ml Iopamidol (Isovue Multipack-370 (76%)) 50 ml IVPUSH ONETIME ONE Stop: 04/02/19 11:58 Last Admin: 04/02/19 11:57 Dose: 50 ml Methylprednisolone Sodium Succinate (Solu-Medrol) 125 mg IVPUSH ONETIME ONE Stop: 04/02/19 14:06 Last Admin: 04/02/19 14:46 Dose: 125 mg - Exam General: Reports: Alert, Oriented, Cooperative Lungs: Reports: Clear to Auscultation, Normal Respiratory Effort Cardiovascular: Reports: Regular Rate, Regular Rhythm, No Murmurs GI/Abdominal Exam: Normal Bowel Sounds, Soft, Non-Tender, No Distention Extremities: Normal Inspection, Normal Range of Motion, Non-Tender Wound/Incisions: Reports: Healing Well Neurological: Reports: No New Focal Deficit Psy/Mental Status: Reports: Alert, Normal Affect, Normal Mood <Yosi Vale - Last Filed: 04/04/19 06:47> Discharge Summary - Hospital Course HPI Initial Comments: I have examined the patient independently of Selena Santillan CNP. I have discussed the case with her. I have reviewed and agree with the examination and plan as outlined by her. Please see orders. - Patient Summary/Data Consults: Consultations 04/02/19 14:03 Respiratory Care Assess and Treatment [CONS] Routine - Patient Data Vitals - Most Recent: Last Vital Signs Temp 36.3 C 04/03/19 07:40 Pulse 98 04/03/19 07:40 Resp 14 04/03/19 07:40 BP 103/55 L 04/03/19 07:40 Pulse Ox 91 L 04/03/19 07:40 Orthostatic Blood Pressure [ 82/49 Standing] Orthostatic Blood Pressure [ 103/58 Sitting] Orthostatic Blood Pressure [ 103/55 Supine] I&O - Last 24 hours: Intake & Output 04/03/19 04/03/19 04/04/19 14:59 22:59 06:59 Intake Total 878 Output Total 100 Balance 778 [facility] Results - Last 24 hrs: Microbiology 04/03/19 05:20 Campylobacter Antigen Assay - Final Stool / Feces Positive Campylobacter Ag Shiga Toxin I - Final NEGATIVE FOR SHIGA TOXIN 1 REFERENCE RANGE: NEGATIVE Shiga Toxin II - Final NEGATIVE FOR SHIGA TOXIN 2 REFERENCE RANGE: NEGATIVE 04/03/19 05:20 Clostridium difficile Toxin A & B - Final Stool / Feces Negative for C.Diff Toxin/AG REFERENCE RANGE: NEGATIVE Med Orders - Current: Current Medications Discontinued Medications Acetaminophen (Tylenol) 650 mg PO Q4H PRN PRN Reason: Pain (Mild 1-3) Albuterol/Ipratropium (Duoneb 3.0-0.5 Mg/3 Ml) 3 ml NEB Q6HRRT [facility] Last Admin: 04/03/19 05:55 Dose: 3 ml Aspirin (Aspirin) 325 mg PO DAILY [facility] Last Admin: 04/03/19 09:07 Dose: 325 mg Azithromycin (Zithromax) 500 mg PO Q24H [facility] Last Admin: 04/03/19 09:07 Dose: 500 mg Enoxaparin Sodium (Lovenox) 40 mg SUBCUT Q24H [facility] Last Admin: 04/02/19 14:50 Dose: 40 mg Fish Oil (Fish Oil) 1 gm PO DAILY [facility] Last Admin: 04/03/19 09:07 Dose: 1 gm Sodium Chloride (Normal Saline) 1,000 mls @ 999 mls/hr IV ASDIRECTED [facility] Last Infusion: 04/02/19 15:53 Dose: Infused Sodium Chloride (Normal Saline) 1,000 mls @ 125 mls/hr IV ASDIRECTED [facility] Last Admin: 04/03/19 06:00 Dose: 125 mls/hr Insulin Aspart (Novolog) 0 unit SUBCUT TIDAC [facility]; Protocol Last Admin: 04/03/19 07:36 Dose: 2 unit Iopamidol (Isovue Multipack-370 (76%)) 50 ml IVPUSH ONETIME ONE Stop: 04/02/19 11:58 Last Admin: 04/02/19 11:57 Dose: 50 ml Methylprednisolone Sodium Succinate (Solu-Medrol) 125 mg IVPUSH ONETIME ONE Stop: 04/02/19 14:06 Last Admin: 04/02/19 14:46 Dose: 125 mg Ondansetron HCl (Zofran) 4 mg IVPUSH Q4H PRN PRN Reason: Nausea Pantoprazole Sodium (Protonix) 40 mg PO DAILY [facility] Last Admin: 04/03/19 09:07 Dose: 40 mg Folic Acid [Folic (Acid] 0.8 Mg) 1 each PO DAILY [facility] Last Admin: 04/03/19 09:46 Dose: Not Given L.Acidoph,Paracasei, B.Lactis [Probiotic ] 1 Each 1 each PO DAILY [facility] Last Admin: 04/03/19 09:46 Dose: Not Given Magnesium Oxide 500 (Mg) 1 each PO DAILY [facility] Last Admin: 04/03/19 09:46 Dose: Not Given Ubidecarenone [ (Coenzyme Q10] 10 Mg) 1 each PO DAILY [facility] Last Admin: 04/03/19 09:46 Dose: Not Given Sodium Chloride (Saline Flush) 10 ml FLUSH ASDIRECTED PRN PRN Reason: Keep Vein Open Last Admin: 04/02/19 08:57 Dose: 10 ml Sodium Chloride (Saline Flush) 2.5 ml FLUSH ASDIRECTED PRN PRN Reason: Keep Vein Open Last Admin: 04/02/19 08:56 Dose: 2.5 ml
== END 2019-04-03 11:10 | disposition home or self-care (01) ==
LOC: MW.ED 08:42 → MW.MS 13:19
PROVIDERS: ADMIT Internal Medicine; ATTEND Internal Medicine
DX: I95.9 Hypotension, unspecified (principal); R06.00 Dyspnea, unspecified; I25.10 Atherosclerotic heart disease of native coronary artery without angina pectoris; I10 Essential (primary) hypertension; E11.9 Type 2 diabetes mellitus without complications; E78.5 Hyperlipidemia, unspecified; A04.5 Campylobacter enteritis; R19.7 Diarrhea, unspecified; J44.9 Chronic obstructive pulmonary disease, unspecified; Z85.07 Personal history of malignant neoplasm of pancreas; Z79.82 Long term (current) use of aspirin; Z79.899 Other long term (current) drug therapy; Z79.84 Long term (current) use of oral hypoglycemic drugs; E66.9 Obesity, unspecified; Z68.31 Body mass index [BMI] 31.0-31.9, adult; Z87.891 Personal history of nicotine dependence
CPT/HCPCS: 36415; 36600; 71045; 71275; 80053; 81001; 82803; 82962; 83690; 83880; 84484; 85025; 85379; 87046; 87324; 87899; 93005; 94640; 96361; 96372; 96374; 99285; A9270; G0378; J1650; J1815; J2930; J7040; Q9967; 96360; J7620-GY

== ENCOUNTER 2019-04-05 07:48 | Emergency (ER) | payer OTHER, MEDICARE ==
[2019-04-05] MEDS ORDERED: Albuterol/Ipratropium 3.0-0.5 MG/3 ML Neb Soln ONE (07:55)
[2019-04-05] MEDS ORDERED: Albuterol/Ipratropium 3.0-0.5 MG/3 ML Neb Soln NEB ONE (07:59)
[2019-04-05] MEDS ORDERED: Levalbuterol HCl 1.25 MG/3 ML Neb NEB ONE (08:00)
[2019-04-05] MEDS ORDERED: Sodium Chloride 0.9% 2.5 ML Syringe FLUSH PRN (08:03)
[2019-04-05] MEDS ORDERED: Sodium Chloride 0.9% 10 ML Syringe FLUSH PRN (08:03)
--- NOTE | 2019-04-05 08:08 | EDM.PDOC ---
ED HPI GENERAL MEDICAL PROBLEM - General Stated Complaint: SHORTNESS OF BREATH Time Seen by Provider: 04/05/19 08:07 - History of Present Illness INITIAL COMMENTS - FREE TEXT/NARRATIVE: 74 y/o male with history of pancreatic cancer s/p stent placement presenting with shortness of breath. He was recently hospitalized on 04/03/19 for similar symptoms. He was found to be clostridium positive for which he was treated with azithromycin. Diarrhea has resolved but still short of breath. Feels weak. has been getting weekly IV [facility] infusions at [facility] which he states it helps temporarily. Can only walk few feet at home. Uses walker but states gets short of breath after few steps. Denies any lung medical history. Former smoker, quit 30 years ago. No cough. - Related Data Allergies Allergy/AdvReac Type Severity Reaction Status Date / Time albuterol [From DuoNeb] Allergy Shaking Verified 04/05/19 08:19 ipratropium [From DuoNeb] Allergy Shaking Verified 04/05/19 08:19 Home Meds: Home Meds Aspirin 325 mg PO DAILY 09/20/14 [History] Pantoprazole Sodium [Protonix] 40 mg PO DAILY 03/24/19 [History] Folic Acid 0.8 mg PO DAILY 04/02/19 [History] L.acidoph,Paracasei, B.lactis [Probiotic] 1 each PO DAILY 04/02/19 [History] Magnesium Oxide 500 mg PO DAILY 04/02/19 [History] Hestand-3/DHA/Epa/Fish Oil [[place]estand 3 500 Softgel] 1 each PO DAILY 04/02/19 [History ] Ubidecarenone [Coenzyme Q10] 10 mg PO DAILY 04/02/19 [History] glipiZIDE [Glucotrol] 5 mg PO BID 04/02/19 [History] Azithromycin [Zithromax] 500 mg PO Q24H #4 tablet 04/03/19 [Rx] Past Medical History HEENT History: Reports: Impaired Vision Cardiovascular History: Reports: CAD, Hypertension, MS, Stents. Denies: Afib, Blood Clots/VTE/DVT Respiratory History: Reports: None. Denies: Asthma, COPD Gastrointestinal History: Reports: None. Denies: GERD, GI Bleed Genitourinary History: Reports: None. Denies: Chronic Renal Insuffiency Musculoskeletal History: Reports: None Neurological History: Reports: None. Denies: CVA, TIA Psychiatric History: Reports: None Endocrine/Metabolic History: Reports: Diabetes, Type II, Obesity/BMI 30+ Oncologic (Cancer) History: Reports: Pancreatic - Infectious Disease History Infectious Disease History: Reports: Chicken Pox, Measles, Mumps - Past Surgical History HEENT Surgical History: Reports: Cataract Surgery Cardiovascular Surgical History: Reports: None GI Surgical History: Reports: ERCP, Other (See Below) (biliary stent placement March 2019) Other GI Surgeries/Procedures: bile stent placeds february 2019 Musculoskeletal Surgical History: Reports: Other (See Below) Other Musculoskeletal Surgeries/Procedures:: right total shoulder on 12/13/2018 Oncologic Surgical History: Reports: None Social & Family History - Family History Family Medical History: Noncontributory - Caffeine Use Caffeine Use: Reports: Coffee, Soda, Tea - Living Situation & Occupation Living situation: Reports: Occupation: Retired ED ROS GENERAL - Review of Systems Review Of Systems: ROS reveals no pertinent complaints other than HPI. ED EXAM, GENERAL - Physical Exam Exam: See Below General Appearance: Alert, WD/WN, No Apparent Distress Respiratory/Chest: No Respiratory Distress, Lungs Clear, Normal Breath Sounds. No: Crackles, Wheezing Cardiovascular: Normal Peripheral Pulses, No Edema GI/Abdominal: Normal Bowel Sounds, Soft, No Distention, Other (tender in epigastric region, no rebound) Extremities: Normal Inspection, No Pedal Edema Neurological: Alert, Oriented Skin Exam: Warm, Dry Course - Vital Signs Text/Narrative:: breathing treatment x1. Feeling better. Trop 0.17 x1. No EKG interval changes. No ST elevation. Lovenox 100 mg SQ once. Discussed case with Dr. Love, Hospitalist at [facility] who has accepted the patient. Last Recorded V/S: Last Vital Signs Temp 36.4 C 04/05/19 08:09 Pulse 120 H 04/05/19 09:17 Resp 18 04/05/19 09:17 BP 115/74 04/05/19 09:17 Pulse Ox 96 04/05/19 09:17 - Orders/Labs/Meds Orders: Active Orders 24 hr Category Date Time Status EKG Documentation Completion [RC] STAT Care 04/05/19 08:04 Active EKG Documentation Completion [RC] STAT Care 04/05/19 08:54 Active RT Aerosol Therapy [RC] ASDIRECTED Care 04/05/19 07:59 Active RT Aerosol Therapy [RC] ASDIRECTED Care 04/05/19 08:01 Active Sodium Chloride 0.9% [Saline Flush] Med 04/05/19 08:03 Active 10 ml FLUSH ASDIRECTED PRN Sodium Chloride 0.9% [Saline Flush] Med 04/05/19 08:03 Active 2.5 ml FLUSH ASDIRECTED PRN Saline Lock Insert [OM.PC] Stat Oth 04/05/19 08:03 Ordered Medication Orders Sodium Chloride (Saline Flush) 10 ml FLUSH ASDIRECTED PRN PRN Reason: Keep Vein Open Last Admin: 04/05/19 08:59 Dose: 10 ml Sodium Chloride (Saline Flush) 2.5 ml FLUSH ASDIRECTED PRN PRN Reason: Keep Vein Open Last Admin: 04/05/19 08:59 Dose: 2.5 ml Labs: Laboratory Tests 04/05/19 04/05/19 04/05/19 Range/Units 08:13 08:13 08:13 WBC 12.82 H (4.0-11.0) K/uL RBC 3.96 L (4.50-5.90) M/uL Hgb 11.1 L (13.0-17.0) g/dL Hct 34.4 L (38.0-50.0) % MCV 86.9 (80.0-98.0) fL MCH 28.0 (27.0-32.0) pg MCHC 32.3 (31.0-37.0) g/dL RDW Std Deviation 47.0 (28.0-62.0) fl RDW Coeff of [place] 15 (11.0-15.0) % Plt Count 287 (150-400) K/uL MPV 9.90 (7.40-12.00) fL Neut % (Auto) 79.8 (48.0-80.0) % Lymph % (Auto) 5.3 L (16.0-40.0) % [place] % (Auto) 14.3 (0.0-15.0) % Eos % (Auto) 0.5 (0.0-7.0) % Baso % (Auto) 0.1 (0.0-1.5) % Neut # (Auto) 10.2 H (1.4-5.7) K/uL Lymph # (Auto) 0.7 (0.6-2.4) K/uL [place] # (Auto) 1.8 H (0.0-0.8) K/uL Eos # (Auto) 0.1 (0.0-0.7) K/uL Baso # (Auto) 0.0 (0.0-0.1) K/uL Nucleated RBC % 0.0 /100WBC Nucleated RBCs # 0 K/uL Sodium 135 L (136-148) mmol/L Potassium 3.2 L (3.5-5.1) mmol/L Chloride 101 (98-107) mmol/L Carbon Dioxide 21.8 (21.0-32.0) mmol/L BUN 12 (7.0-18.0) mg/dL Creatinine 1.3 (0.8-1.3) mg/dL Est Cr Clr Drug Dosing 53.06 mL/min Estimated GFR (MDRD) 53.7 ml/min Glucose 201 H (74-106) mg/dL Calcium 7.6 L (8.5-10.1) mg/dL Total Bilirubin 1.6 H (0.2-1.0) mg/dL AST 56 H (15-37) IU/L ALT 51 (14-63) IU/L Alkaline Phosphatase 388 H (46-116) U/L Troponin I 0.176 H* (0.000-0.056) ng/mL B-Natriuretic Peptide 177 H (<100) PG/ML Total Protein 5.5 L (6.4-8.2) g/dL Albumin 2.0 L (3.4-5.0) g/dL Globulin 3.5 (2.6-4.0) g/dL Albumin/Globulin Ratio 0.6 L (0.9-1.6) Lipase 908 H (73-393) U/L Meds: Medications Generic Name Dose Route Start Last Admin Trade Name Freq PRN Reason Stop Dose Admin Sodium Chloride 10 ml 04/05/19 08:03 04/05/19 08:59 Saline Flush FLUSH 10 ml ASDIRECTED PRN Administration Keep Vein Open Sodium Chloride 2.5 ml 04/05/19 08:03 04/05/19 08:59 Saline Flush FLUSH 2.5 ml ASDIRECTED PRN Administration Keep Vein Open Discontinued Medications Generic Name Dose Route Start Last Admin Trade Name Chuyq PRN Reason Stop Dose Admin Albuterol/Ipratropium 3 ml 04/05/19 07:59 04/05/19 08:09 Duoneb 3.0-0.5 Mg/3 Ml NEB 04/05/19 08:00 Not Given ONETIME ONE Albuterol/Ipratropium Confirm 04/05/19 07:55 04/05/19 08:09 Duoneb 3.0-0.5 Mg/3 Ml Administered 04/05/19 07:56 Not Given Dose 3 ml .ROUTE .STK-MED ONE Aspirin 324 mg 04/05/19 08:47 04/05/19 08:58 Aspirin PO 04/05/19 08:48 324 mg ONETIME ONE Administration Enoxaparin Sodium 100 mg 04/05/19 09:01 04/05/19 09:14 Lovenox SUBCUT 04/05/19 09:02 100 mg ONETIME ONE Administration Levalbuterol HCl 1.25 mg 04/05/19 08:00 04/05/19 08:08 Xopenex NEB 04/05/19 08:01 1.25 mg ONETIME ONE Administration Departure - Departure Time of Disposition: 09:24 Disposition: DC/Tfer to Acute Hospital 02 Clinical Impression: NSTEMI (non-ST elevated myocardial infarction) - Discharge Information *PRESCRIPTION DRUG MONITORING PROGRAM REVIEWED*: Not Applicable *COPY OF PRESCRIPTION DRUG MONITORING REPORT IN PATIENT FORTUNATO: Not Applicable Referrals: Reuben Merrill MD [Primary Care Provider] - - My Orders Last 24 Hours: My Active Orders 04/05/19 07:59 RT Aerosol Therapy [RC] ASDIRECTED 04/05/19 08:01 RT Aerosol Therapy [RC] ASDIRECTED 04/05/19 08:03 Sodium Chloride 0.9% [Saline Flush] 10 ml FLUSH ASDIRECTED PRN Sodium Chloride 0.9% [Saline Flush] 2.5 ml FLUSH ASDIRECTED PRN Saline Lock Insert [OM.PC] Stat 04/05/19 08:04 EKG Documentation Completion [RC] STAT 04/05/19 08:54 EKG Documentation Completion [RC] STAT - Assessment/Plan Last 24 Hours: My Active Orders 04/05/19 07:59 RT Aerosol Therapy [RC] ASDIRECTED 04/05/19 08:01 RT Aerosol Therapy [RC] ASDIRECTED 04/05/19 08:03 Sodium Chloride 0.9% [Saline Flush] 10 ml FLUSH ASDIRECTED PRN Sodium Chloride 0.9% [Saline Flush] 2.5 ml FLUSH ASDIRECTED PRN Saline Lock Insert [OM.PC] Stat 04/05/19 08:04 EKG Documentation Completion [RC] STAT 04/05/19 08:54 EKG Documentation Completion [RC] STAT
[2019-04-05] MEDS ORDERED: Aspirin 81 MG Tab.Chew PO ONE (08:47)
[2019-04-05] MEDS ORDERED: Enoxaparin 100 MG/1 ML Syringe SUBCUT ONE (09:01)
--- NOTE | 2019-04-05 09:21 | CR ---
INDICATION: Chest pain TECHNIQUE: Chest 1 views COMPARISON: 04/02/2019 FINDINGS: Cardiovascular and mediastinum: Heart size and vasculature are normal in caliber and appearance. Lungs and pleural spaces: Lungs are clear. No sign of infiltrate or mass. No sign of pleural effusion. No pneumothorax. Bones and soft tissues: No significant findings. IMPRESSION: No acute findings and no significant changes from the prior exam. Dictated by Praveen Cazares MD @ Apr 05 2019 9:17AM Signed by Dr. Praveen Cazares @ Apr 05 2019 9:19AM
[2019-04-05] MEDS ORDERED: Metoprolol Tartrate 5 MG/5 ML SDV IVPUSH ONE (09:33)
[2019-04-05 10:44] VITALS: BP 111/76
== END 2019-04-05 10:55 ==
LOC: MW.ED 07:48
DX: I21.4 Non-ST elevation (NSTEMI) myocardial infarction (principal); I25.10 Atherosclerotic heart disease of native coronary artery without angina pectoris; I25.2 Old myocardial infarction; I10 Essential (primary) hypertension; E11.9 Type 2 diabetes mellitus without complications; Z87.891 Personal history of nicotine dependence; Z88.8 Allergy status to other drugs, medicaments and biological substances; Z79.82 Long term (current) use of aspirin; Z79.899 Other long term (current) drug therapy; Z85.07 Personal history of malignant neoplasm of pancreas
CPT/HCPCS: 36415; 71045; 80053; 83690; 83880; 84484; 85025; 93005; 94640; 96372; 96374; 99285; A9270; J1650; J3490; J7612